=== PATIENT | male | born 1950 | race Caucasian/White ===

== ENCOUNTER 2016-08-23 11:48 | Inpatient (IN) | payer MEDICARE, MEDICAID ==
[~2016-08-23] VITALS: Ht 180.3 cm; Wt 79.8 kg
[2016-08-23] MEDS ORDERED: Norco 5mg/325mg tab ORAL PRN (22:45)
[2016-08-23] MEDS ORDERED: Morphine Sulfate 2mg/ml Inj IVP PRN (22:45)
[2016-08-24] VITALS: BP 142/81
[2016-08-24 04:00] VITALS: BP 133/82
[2016-08-24 08:00] VITALS: BP 124/81
[2016-08-24 08:04] LABS: BASOPHILS % (AUTO) 0.5 % (0.0-2.0); EOSINOPHILS % (AUTO) 1.2 % (0.0-3.0); LYMPHOCYTES % (AUTO) 8.7 % (20.0-45.0); MEAN CORPUSCULAR HEMOGLOBIN 24.6 PG (27.0-31.0); MEAN CORPUSCULAR HGB CONC 33.4 G/DL (32.0-36.0); MEAN CORPUSCULAR VOLUME 74 FL (80-99); MEAN PLATELET VOLUME 4.9 FL (6.5-10.1); MONOCYTES % (AUTO) 8.7 % (1.0-10.0); NEUTROPHILS % (AUTO) 80.8 % (45.0-75.0); PLATELET COUNT 590 K/UL (150-450); RED BLOOD COUNT 4.01 M/UL (4.70-6.10); RED CELL DISTRIBUTION WIDTH 20.3 % (11.6-14.8); WHITE BLOOD COUNT 13.8 K/UL (4.8-10.8)
[2016-08-24 08:11] LABS: ALANINE AMINOTRANSFERASE 12 U/L (3-41); ALBUMIN/GLOBULIN RATIO 0.8 (1.0-2.7); ANION GAP 15 (5-15); ASPARTATE AMINO TRANSFERASE 11 U/L (5-40); CALCIUM 8.7 mg/dL (8.6-10.2); CARBON DIOXIDE 24 mEQ/L (20-30); CHLORIDE 97 mEQ/L (98-107); CREATININE 0.8 mg/dL (0.7-1.2); GLOMERULAR FILTRATION RATE > 60 mL/min (>60); HEMOLYSIS 2; PHOSPHORUS 3.2 mg/dL (2.5-4.8); POTASSIUM 3.8 mEQ/L (3.4-4.9); SODIUM 136 mEQ/L (135-145); TOTAL PROTEIN 6.6 g/dL (6.6-8.7)
--- NOTE | 2016-08-24 08:33 | Diagnostic Imaging Report ---
Indication: Shortness of breath and vomiting Technique: Single portable AP view of the chest. Findings: Comparison: None. Osteophytes suggested in mid thoracic spine. The extra pulmonary soft tissues, cardiomediastinal silhouette, pulmonary vasculature and parenchyma, and pleural surfaces are unremarkable. IMPRESSION: Degenerative spondylosis Otherwise negative portable AP chest.
[2016-08-24] MEDS: Pantoprazole Inj IVP SCH ×2 (09:15→17:29)
--- NOTE | 2016-08-24 11:36 | GI Initial Consult Note ---
History of Present Illness General Date patient seen: Aug 24, 2016 Time patient seen: 10:00 Referring physician: ESTUARDO JOHNSON Reason for Consultation: GI BLEED Present Illness HPI 66 year old male patient direct admission from [facility] due to GI bleed. Last H&H @ [place] noted to be 6.9, s/p 2 units pRBCs currently at 8.6. ROS limited, patient request for rest due to fatigue. Pt seen on floor, awake A& Ox4 NAD with no active s/sx of bleeding. Patient says he is unaware of any active bleeds. Hx of asthma. Denies any history of any endoscopic procedures. Presents today with anemia, leukocytosis and hypoalbuminemia. Allergies: Coded Allergies: No Known Allergies (Unverified , 08/23/16) Per pt, he has no known allergies Patient History History Provided By: Patient, Medical Record Review of Systems All Other Systems: negative except mentioned in HPI Physical Exam Vital Signs Date Time Temp Pulse Resp B/P Pulse Ox O2 Delivery O2 Flow Rate FiO2 08/23/16 20:45 86 08/24/16 00:00 98.1 16 142/81 100 08/24/16 04:00 Room Air Sp02 EP Interpretation: reviewed Labs Laboratory Tests Test 08/24/16 07:25 White Blood Count 13.8 K/UL (4.8-10.8) H Red Blood Count 4.01 M/UL (4.70-6.10) L Hemoglobin 9.9 G/DL (14.2-18.0) L Hematocrit 29.5 % (42.0-52.0) L Mean Corpuscular Volume 74 FL (80-99) L Mean Corpuscular Hemoglobin 24.6 PG (27.0-31.0) L Mean Corpuscular Hemoglobin Concent 33.4 G/DL (32.0-36.0) Red Cell Distribution Width 20.3 % (11.6-14.8) H Platelet Count 590 K/UL (150-450) H Mean Platelet Volume 4.9 FL (6.5-10.1) L Neutrophils (%) (Auto) 80.8 % (45.0-75.0) H Lymphocytes (%) (Auto) 8.7 % (20.0-45.0) L Monocytes (%) (Auto) 8.7 % (1.0-10.0) Eosinophils (%) (Auto) 1.2 % (0.0-3.0) Basophils (%) (Auto) 0.5 % (0.0-2.0) Sodium Level 136 mEQ/L (135-145) Potassium Level 3.8 mEQ/L (3.4-4.9) Chloride Level 97 mEQ/L (98-107) L Carbon Dioxide Level 24 mEQ/L (20-30) Anion Gap 15 (5-15) Blood Urea Nitrogen 19 mg/dL (7-23) Creatinine 0.8 mg/dL (0.7-1.2) Estimat Glomerular Filtration Rate > 60 mL/min (>60) Glucose Level 107 mg/dL (74-106) H Calcium Level 8.7 mg/dL (8.6-10.2) Phosphorus Level 3.2 mg/dL (2.5-4.8) Magnesium Level 2.0 mg/dL (1.7-2.5) Total Bilirubin 0.4 mg/dL (0.0-1.2) Aspartate Amino Transf (AST/SGOT) 11 U/L (5-40) Alanine Aminotransferase (ALT/SGPT) 12 U/L (3-41) Alkaline Phosphatase 51 U/L (40-129) Total Protein 6.6 g/dL (6.6-8.7) Albumin 3.1 g/dL (3.5-5.2) L Globulin 3.5 g/dL Albumin/Globulin Ratio 0.8 (1.0-2.7) L General Appearance: well appearing, no apparent distress, alert Head: normocephalic EENT: PERRL/EOMI, normal ENT inspection Neck: supple Respiratory: normal breath sounds, no respiratory distress Cardiovascular: normal rate Gastrointestinal: normal inspection, non tender, soft Rectal: heme negative stool Musculoskeletal: normal inspection, back normal Neurologic: normal inspection, alert, oriented x3, responsive Psychiatric: normal inspection, judgement/insight normal, memory normal Skin: normal inspection, normal color, no rash, warm/dry Lymphatic: normal inspection, no adenopathy Current Medications Current Medications Medications (Trade) Dose Ordered Sig/Fabian Route PRN Reason Start Time Stop Time Status Last Admin Dose Admin Acetaminophen/ Hydrocodone Bitart ([place] 5/325) 1 tab Q6HR PRN ORAL For Pain 08/23/16 22:45 08/30/16 22:44 Morphine Sulfate (Morphine Sulfate) 2 mg Q4H PRN IVP Severe Pain (Pain Scale 7-10) 08/23/16 22:45 08/30/16 22:44 Ondansetron HCl (Zofran) 4 mg Q4HR PRN IVP Nausea & Vomiting 08/23/16 22:45 09/22/16 22:44 Pantoprazole (Protonix) 40 mg BID IVP 08/24/16 09:00 09/23/16 08:59 08/24/16 09:15 GI: Plan Problems: (1) Anemia (2) Leukocytosis (3) Hypoalbuminemia (4) GI bleed Plan patient for EGD/colonoscopy tomorrow for evaluation of GI bleed/anemia - maintain CLD, NPO @ [place]. - hold all blood thinners anemia work up OB stool r/o GI bleed monitor H&H, transfuse prn ppi fu labs Discussed with Dr. Bassett. Thank you for referring this patient, we will follow. Alejandra Iraheta N.P. Aug 24, 2016 11:36
[2016-08-24 12:00] VITALS: BP 124/70
--- NOTE | 2016-08-24 13:02 | Consultation ---
History of Present Illness General Date patient seen: Aug 24, 2016 Referring physician: ESTUARDO JOHNSON Reason for Consultation: inpatinet management Present Illness HPI 66 year old male with pmhx of Asthma, was taken to [facility] due to GI bleed. Last H&H @ [place] noted to be 6.9, s/p 2 units PRBC. Pt claims that his girl friend took him to [place] and doesn't remember why. Patient says he is unaware of any active bleeds. Currently c/o of constipation and weakness. Allergies: Coded Allergies: No Known Allergies (Unverified , 08/23/16) Per pt, he has no known allergies Patient History Healthcare decision maker N Resuscitation status Full Code Advanced Directive on File Past Medical/Surgical History Past Medical/Surgical History: (1) History of asthma (2) Homeless Review of Systems All Other Systems: negative except mentioned in HPI Physical Exam General Appearance: WD/WN, alert Lines, tubes and drains: peripheral, central line HEENT: normocephalic, atraumatic Neck: non-tender, normal alignment Respiratory/Chest: chest wall non-tender, normal breath sounds Breasts: no masses Cardiovascular/Chest: normal peripheral pulses Abdomen: normal bowel sounds, non tender Genitourinary/Rectal: normal genital exam, normal rectal exam Extremities: normal range of motion, non-tender Skin Exam: normal pigmentation Last 24 Hour Vital Signs Date Time Temp Pulse Resp B/P Pulse Ox O2 Delivery O2 Flow Rate FiO2 08/24/16 12:00 97.7 96 19 124/70 99 Room Air 08/24/16 08:00 97.7 88 19 124/81 97 Room Air 08/24/16 07:55 90 08/24/16 04:00 97.7 86 20 133/82 99 Room Air 08/24/16 04:00 85 08/24/16 00:00 98.1 90 16 142/81 100 08/24/16 00:00 93 08/23/16 20:45 86 Intake and Output 08/23/16 08/24/16 19:00 07:00 Intake Total 240 ml Output Total 500 ml Balance -260 ml Intake Oral 240 ml Output Urine Total 500 ml Laboratory Tests Test 08/24/16 07:25 White Blood Count 13.8 K/UL (4.8-10.8) H Red Blood Count 4.01 M/UL (4.70-6.10) L Hemoglobin 9.9 G/DL (14.2-18.0) L Hematocrit 29.5 % (42.0-52.0) L Mean Corpuscular Volume 74 FL (80-99) L Mean Corpuscular Hemoglobin 24.6 PG (27.0-31.0) L Mean Corpuscular Hemoglobin Concent 33.4 G/DL (32.0-36.0) Red Cell Distribution Width 20.3 % (11.6-14.8) H Platelet Count 590 K/UL (150-450) H Mean Platelet Volume 4.9 FL (6.5-10.1) L Neutrophils (%) (Auto) 80.8 % (45.0-75.0) H Lymphocytes (%) (Auto) 8.7 % (20.0-45.0) L Monocytes (%) (Auto) 8.7 % (1.0-10.0) Eosinophils (%) (Auto) 1.2 % (0.0-3.0) Basophils (%) (Auto) 0.5 % (0.0-2.0) Sodium Level 136 mEQ/L (135-145) Potassium Level 3.8 mEQ/L (3.4-4.9) Chloride Level 97 mEQ/L (98-107) L Carbon Dioxide Level 24 mEQ/L (20-30) Anion Gap 15 (5-15) Blood Urea Nitrogen 19 mg/dL (7-23) Creatinine 0.8 mg/dL (0.7-1.2) Estimat Glomerular Filtration Rate > 60 mL/min (>60) Glucose Level 107 mg/dL (74-106) H Calcium Level 8.7 mg/dL (8.6-10.2) Phosphorus Level 3.2 mg/dL (2.5-4.8) Magnesium Level 2.0 mg/dL (1.7-2.5) Total Bilirubin 0.4 mg/dL (0.0-1.2) Aspartate Amino Transf (AST/SGOT) 11 U/L (5-40) Alanine Aminotransferase (ALT/SGPT) 12 U/L (3-41) Alkaline Phosphatase 51 U/L (40-129) Total Protein 6.6 g/dL (6.6-8.7) Albumin 3.1 g/dL (3.5-5.2) L Globulin 3.5 g/dL Albumin/Globulin Ratio 0.8 (1.0-2.7) L Height (Feet): 5 Height (Inches): 11.00 Weight (Pounds): 176 Medications Current Medications Medications (Trade) Dose Ordered Sig/Fabian Route PRN Reason Start Time Stop Time Status Last Admin Dose Admin Acetaminophen/ Hydrocodone Bitart ([place] 5/325) 1 tab Q6HR PRN ORAL For Pain 08/23/16 22:45 08/30/16 22:44 Morphine Sulfate (Morphine Sulfate) 2 mg Q4H PRN IVP Severe Pain (Pain Scale 7-10) 08/23/16 22:45 08/30/16 22:44 Ondansetron HCl (Zofran) 4 mg Q4HR PRN IVP Nausea & Vomiting 08/23/16 22:45 09/22/16 22:44 Pantoprazole (Protonix) 40 mg BID IVP 08/24/16 09:00 09/23/16 08:59 08/24/16 09:15 Assessment/Plan Problem List: (1) Anemia ICD Codes: D64.9 - Anemia, unspecified SNOMED: 358145295 (2) Leukocytosis ICD Codes: D72.829 - Elevated white blood cell count, unspecified SNOMED: 222169712, 056087158 (3) Hypoalbuminemia ICD Codes: E88.09 - Other disorders of plasma-protein metabolism, not elsewhere classified SNOMED: 349340889 (4) History of asthma ICD Codes: Z87.09 - Personal history of other diseases of the respiratory system SNOMED: 761989597 (5) GI bleed ICD Codes: K92.2 - Gastrointestinal hemorrhage, unspecified SNOMED: 96554988 (6) Homeless ICD Codes: Z59.0 - Homelessness SNOMED: 81925534 Assessment/Plan check h/h prbc prn GI evaluation psych evaluation QUINTON FREEDMAN Aug 24, 2016 13:02
[2016-08-24 16:00] VITALS: BP 124/78
[2016-08-24] MEDS ORDERED: Bisacodyl EC 5mg tab ORAL ONE (16:00)
[2016-08-24] MEDS ORDERED: Nulytely 4L ORAL ONE (16:00)
--- NOTE | 2016-08-24 18:56 | History & Physical ---
History and Physical History & Physicial Dictated for Int Med - Dr Gregory no. [id number]. WILLIS DIANE Aug 24, 2016 18:56
[2016-08-24 19:33] VITALS: BP 131/80
[2016-08-24] MEDS: NS w/KCl 20mEq 1,000 ML IV SCH (20:00)
--- NOTE | 2016-08-24 21:00 | Consultation ---
DATE OF CONSULTATION: HISTORY OF PRESENT ILLNESS: This is a 66-year-old male with a history of asthma, who has been admitted to the hospital due to GI bleeding. The patient initially was taken to the [facility]. Apparently, the patient does not have any recollection of going to the hospital reason. During the evaluation, he is presenting with impairment in cognition, having impairment of memory, not able to provide a thorough history. The patient is currently homeless. It appears that the patient has poor compliance with medication and care. No anxiety or agitation. No depressive psychotic symptoms. PAST PSYCHIATRIC HISTORY: He denies any psychiatric history. PAST MEDICAL HISTORY: Significant for asthma. ALLERGIES: No known drug allergies. SUBSTANCE ABUSE HISTORY: No known history of illicit drug use or alcohol. The patient is denying. MENTAL STATUS EXAMINATION: Alert and oriented times self and place. He appeared to be somewhat confused. Mood is neutral. Affect is constricted. Congruent mood. Thought process is concrete. Thought content, no suicidal or homicidal ideation. Cognition is impaired. ASSESSMENT: AXIS I Cognitive impairment rule out psychotic disorder. AXIS II Deferred. AXIS III Gastrointestinal bleed. AXIS IV Moderate. AXIS V Global assessment of functioning is 20. PLAN: 1. The patient will have a social service consult. 2. We will continue to reassess. Pauly Mcdonnell M.D. DR: Jay JOB#: [id number] CC:
--- NOTE | 2016-08-24 21:30 | History and Physical Report ---
DATE OF ADMISSION: 08/23/2016 CHIEF COMPLAINT: The patient is a 66-year-old white male, who presents with chief complaint of vomiting blood. HISTORY OF PRESENT ILLNESS: Began yesterday on 08/23/2016. The patient states he began to experience extreme weakness. The patient was fainting. The patient then began to vomit a he darker colored vomit. The patient thinks it might have been blood. The patient presented initially to [facility]. The patient was found to have hemoglobin and hematocrit of 8.0 and 26.5. The patient was actively vomiting blood. The patient was transfused two units of packed RBCs. The patient was stable for transfer to [facility]. The patient was transferred to [facility] for insurance purposes. The patient is admitted with gastrointestinal bleeding and hematemesis. PAST MEDICAL HISTORY: The patient denies. PAST SURGICAL HISTORY: The patient denies. CURRENT MEDICATIONS: The patient denies. ALLERGIES: No known drug allergies. SOCIAL HISTORY: The patient is . The patient lives in a transitional housing for former convicts. The patient denies tobacco or alcohol use. REVIEW OF SYSTEMS: Constitutional: The patient denies weight loss or weight gain. The patient denies fevers or chills. HEENT: The patient denies ear or throat pain. The patient denies headache. Cardiovascular: The patient denies palpitations or chest pain. Chest: The patient denies wheezing or shortness of breath. Abdominal: The patient complains of dark red blood emesis as above. The patient denies constipation or diarrhea. The patient complains of nausea and vomiting. Neuromuscular: The patient denies seizure or generalized weakness. Genitourinary: The patient denies dysuria or increased frequency of urination. PHYSICAL EXAMINATION: VITAL SIGNS: Temperature 97.7 degrees, respirations 19, pulse 88, and blood pressure 124/81. GENERAL: The patient is a well-developed and well-nourished, thin-appearing white male, in no apparent distress. HEENT: Eyes, pupils are equal and responsive to light and accommodation. Extraocular movements are intact. NECK: Supple without lymphadenopathy. CHEST: Lungs are clear to auscultation bilaterally without wheezes or rales. CARDIOVASCULAR: Regular rhythm and rate. S1 and S2 are normal without murmurs, rubs, or gallops. ABDOMEN: Soft, nontender and nondistended. Positive bowel sounds. No evidence of hepatosplenomegaly. Currently, no rebound or guarding noted. EXTREMITIES: Negative for clubbing, cyanosis, or edema. RECTAL/GENITAL: Refused. NEUROLOGIC: Cranial nerves II through XII are grossly intact without focal deficits. Motor strength is 5/5 bilaterally. Deep tendon reflexes are 2+ plantar. LABORATORY STUDIES: From [facility] WBC 17.5, hemoglobin 8.0, hematocrit 26.5, and platelets 743,000. Sodium 131, potassium 3.8, chloride 97, CO2 24, BUN 27, and creatinine 0.99. Glucose is 123. Lipase is 16. ALT 18, AST 16, and total bilirubin was 0.2. ASSESSMENT: This is a 66-year-old white male. 1. Hematemesis. 2. Gastrointestinal hemorrhage. 3. Anemia of blood loss. 4. History of methamphetamine use. TREATMENT: 1. Hematemesis/gastrointestinal hemorrhage. A Gastroenterology consultation was obtained with Dr. Isreal Bassett. The patient will require endoscopy and colonoscopy. This has been scheduled for 08/25/2016. 2. Anemia, blood loss. The patient received two units of packed RBCs at [facility]. The patient has been typed and crossed for two units of packed RBCs. We will hold PRBC for hemoglobin less than 8 or hematocrit less than 23. 3. History of methamphetamine use. Mohamud Myers M.D. DR: LISA JOB#: [id number] CC:
[2016-08-24] MEDS ORDERED: Fleet's Enema 133ml RECTAL ONE (23:00)
[2016-08-25] VITALS: BP 149/82
[2016-08-25 03:51] VITALS: BP 129/69
--- NOTE | 2016-08-25 07:42 | Anethesia Preoperative Eval ---
Anesthesia Pre-op PMH/ROS General Date of Evaluation: Aug 25, 2016 Anesthesiologist: shayna Mallampati Score Class I : Soft palate, uvula, fauces, pillars visible Class II: Soft palate, uvula, fauces visible Class III: Soft palate, base of uvula visible Class IV: Only hard plate visible Surgeon: minoo Diagnosis: GI Bleed Surgical Procedure: egd/colonoscopy Social History: drug use - history of amphetamine use Family History: no anesthesia problems Allergies: Coded Allergies: No Known Allergies (Unverified , 08/23/16) Per pt, he has no known allergies Medications: see eMAR Past Medical History Pulmonary: Reports: asthma Neurologic/Psychiatric: Reports: other - history of amphetamine use, homeless Hematology/Immune: Reports: anemia Anesthesia Pre-op Phys. Exam Physician Exam Last Vital Signs Date Time Temp Pulse Resp B/P Pulse Ox O2 Delivery O2 Flow Rate FiO2 08/25/16 04:00 81 08/25/16 03:51 97.2 18 129/69 97 Room Air Constitutional: NAD Neurologic: CN 2-12 intact Cardiovascular: RRR Respiratory: CTA Gastrointestinal: S/NT/ND Anesthesia Pre-op A/P Labs Labs Test 08/24/16 07:25 08/24/16 21:40 White Blood Count 13.8 K/UL (4.8-10.8) Red Blood Count 4.01 M/UL (4.70-6.10) Hemoglobin 9.9 G/DL (14.2-18.0) Hematocrit 29.5 % (42.0-52.0) Mean Corpuscular Volume 74 FL (80-99) Mean Corpuscular Hemoglobin 24.6 PG (27.0-31.0) Mean Corpuscular Hemoglobin Concent 33.4 G/DL (32.0-36.0) Red Cell Distribution Width 20.3 % (11.6-14.8) Platelet Count 590 K/UL (150-450) Mean Platelet Volume 4.9 FL (6.5-10.1) Neutrophils (%) (Auto) 80.8 % (45.0-75.0) Lymphocytes (%) (Auto) 8.7 % (20.0-45.0) Monocytes (%) (Auto) 8.7 % (1.0-10.0) Eosinophils (%) (Auto) 1.2 % (0.0-3.0) Basophils (%) (Auto) 0.5 % (0.0-2.0) Sodium Level 136 mEQ/L (135-145) Potassium Level 3.8 mEQ/L (3.4-4.9) Chloride Level 97 mEQ/L (98-107) Carbon Dioxide Level 24 mEQ/L (20-30) Anion Gap 15 (5-15) Blood Urea Nitrogen 19 mg/dL (7-23) Creatinine 0.8 mg/dL (0.7-1.2) Estimat Glomerular Filtration Rate > 60 mL/min (>60) Glucose Level 107 mg/dL (74-106) Calcium Level 8.7 mg/dL (8.6-10.2) Phosphorus Level 3.2 mg/dL (2.5-4.8) Magnesium Level 2.0 mg/dL (1.7-2.5) Total Bilirubin 0.4 mg/dL (0.0-1.2) Aspartate Amino Transf (AST/SGOT) 11 U/L (5-40) Alanine Aminotransferase (ALT/SGPT) 12 U/L (3-41) Alkaline Phosphatase 51 U/L (40-129) Total Protein 6.6 g/dL (6.6-8.7) Albumin 3.1 g/dL (3.5-5.2) Globulin 3.5 g/dL Albumin/Globulin Ratio 0.8 (1.0-2.7) Urine Opiates Screen Negative (NEGATIVE) Urine Barbiturates Screen Negative (NEGATIVE) Phencyclidine (PCP) Screen Negative (NEGATIVE) Urine Amphetamines Screen Positive (NEGATIVE) Urine Benzodiazepines Screen Negative (NEGATIVE) Urine Cocaine Screen Negative (NEGATIVE) Urine Marijuana (THC) Screen Negative (NEGATIVE) Risk Assessment & Plan Assessment: gi bleed Plan: egd Status Change Before Surgery: No Pre-Antibiotics Drug: JENNIFER Mortensen Aug 25, 2016 07:42
[2016-08-25 08:00] VITALS: BP 138/83
[2016-08-25] MEDS: Pantoprazole Inj IVP SCH ×2 (08:07→17:39)
[2016-08-25] MEDS ORDERED: Thiamine 100mg tab ORAL SCH (09:00)
--- NOTE | 2016-08-25 09:14 | Diagnostic Imaging Report ---
Indications: Dyspnea Technique: Portable AP chest Findings: Comparison: 08/24/16 Cardiac silhouette remains normal in size. Pulmonary vasculature remains within normal limits. Lungs and pleura remain clear. Mild elongation of the aortic arch, thoracic vertebral osteophytes again noted. IMPRESSION: No evidence of acute disease, unchanged Stable chronic changes as described
[2016-08-25] MEDS: NS w/KCl 20mEq 1,000 ML IV SCH (09:20)
--- NOTE | 2016-08-25 10:01 | GI Progress Note ---
Assessment/Plan Problems: (1) GI bleed ICD Codes: K92.2 - Gastrointestinal hemorrhage, unspecified SNOMED: 42440031 (2) Hypoalbuminemia ICD Codes: E88.09 - Other disorders of plasma-protein metabolism, not elsewhere classified SNOMED: 765119475 (3) Leukocytosis ICD Codes: D72.829 - Elevated white blood cell count, unspecified SNOMED: 399861137, 459995018 (4) Anemia ICD Codes: D64.9 - Anemia, unspecified SNOMED: 701051863 (5) History of asthma ICD Codes: Z87.09 - Personal history of other diseases of the respiratory system SNOMED: 444516738 Status: unchanged Status Narrative Discussed with Dr. Bassett. Assessment/Plan utox positive for amphetamines patient REFUSED EGD/colonoscopy refused morning lab draws CLD, adv as tolerated monitor H&H, transfuse prn OB stool r/o GI bleed ppi fu labs Subjective Subjective refusing lab draws refusing procedures Objective Last 24 Hour Vital Signs Date Time Temp Pulse Resp B/P Pulse Ox O2 Delivery O2 Flow Rate FiO2 08/25/16 08:00 97.5 95 18 138/83 98 Room Air 08/25/16 08:00 88 08/25/16 04:00 81 08/25/16 03:51 97.2 70 18 129/69 97 Room Air 08/25/16 00:00 97.2 91 18 149/82 100 Room Air 08/25/16 00:00 82 08/24/16 20:00 82 08/24/16 19:33 97.0 91 18 131/80 99 Room Air 08/24/16 16:00 98.1 80 18 124/78 98 Room Air 08/24/16 15:07 82 08/24/16 12:02 89 08/24/16 12:00 97.7 96 19 124/70 99 Room Air Intake and Output 08/24/16 08/25/16 19:00 07:00 Output Total 600 ml Balance -600 ml Output Urine Total 600 ml Laboratory Tests Test 08/24/16 21:40 Urine Opiates Screen Negative (NEGATIVE) Urine Barbiturates Screen Negative (NEGATIVE) Phencyclidine (PCP) Screen Negative (NEGATIVE) Urine Amphetamines Screen Positive (NEGATIVE) H Urine Benzodiazepines Screen Negative (NEGATIVE) Urine Cocaine Screen Negative (NEGATIVE) Urine Marijuana (THC) Screen Negative (NEGATIVE) Height (Feet): 5 Height (Inches): 11.00 Weight (Pounds): 176 General Appearance: no apparent distress, alert Cardiovascular: normal rate Respiratory/Chest: normal breath sounds, no respiratory distress Abdominal Exam: normal bowel sounds, non tender, soft Extremities: normal range of motion Alejandra Iraheta N.P. Aug 25, 2016 10:01
[2016-08-25 11:35] VITALS: BP 122/65
--- NOTE | 2016-08-25 11:35 | Pulmonology Progress Note ---
Assessment/Plan Assessment/Plan ASSESSMENT upper GI bleeding/hemorrhage anemia s/p blood transfusion leukocytosis low albumin cognitive impairment possible psychotic disorder hx of amphetamine abuse homelessness amphetamine abuse nonocclusive DVR soleal vein PLAN OF CARE tele GI follows was scheduled for EGD and colon today, declined start regular diet, monitor tolerance PPI stool OB no further episodes of bleeding labs today , earlier refused anemia w/up ordered( declined labs) O2 HHN prn sat stable on RA CXR negative if stable HH and tolerates diet will dc later SS eval for placement urine tox+ 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 transfer to [facility] floor dc plan addendum: still leukocytosis,afebrile CXR negative HH stable, at baseline can be dc if tolerates diet case discussed and evaluated by supervising physician Subjective Allergies: Coded Allergies: No Known Allergies (Unverified , 08/23/16) Per pt, he has no known allergies Subjective declined EGD and colon today no further episodes of bleeding no labs this am Objective Last 24 Hour Vital Signs Date Time Temp Pulse Resp B/P Pulse Ox O2 Delivery O2 Flow Rate FiO2 08/25/16 08:00 97.5 95 18 138/83 98 Room Air 08/25/16 08:00 88 08/25/16 04:00 81 08/25/16 03:51 97.2 70 18 129/69 97 Room Air 08/25/16 00:00 97.2 91 18 149/82 100 Room Air 08/25/16 00:00 82 08/24/16 20:00 82 08/24/16 19:33 97.0 91 18 131/80 99 Room Air 08/24/16 16:00 98.1 80 18 124/78 98 Room Air 08/24/16 15:07 82 08/24/16 12:02 89 08/24/16 12:00 97.7 96 19 124/70 99 Room Air Intake and Output 08/24/16 08/25/16 19:00 07:00 Output Total 600 ml Balance -600 ml Output Urine Total 600 ml General Appearance: WD/WN, no acute distress HEENT: normocephalic, atraumatic, anicteric, mucous membranes moist Respiratory/Chest: lungs clear, no respiratory distress, no accessory muscle use Cardiovascular: normal peripheral pulses, normal rate - SR on tele , regular rhythm, no JVD Abdomen: normal bowel sounds, soft, non tender Genitourinary: normal external genitalia Extremities: no edema, pedal pulses normal Neurologic/Psychiatric: no motor/sensory deficits, alert, oriented x 3, responsive Musculoskeletal: normal muscle bulk Laboratory Tests 08/24/16 21:40: Urine Opiates Screen Negative, Urine Barbiturates Screen Negative, Phencyclidine (PCP) Screen Negative, Urine Amphetamines Screen PositiveH, Urine Benzodiazepines Screen Negative, Urine Cocaine Screen Negative, Urine Marijuana (THC) Screen Negative Current Medications Medications (Trade) Dose Ordered Sig/Fabian Route PRN Reason Start Time Stop Time Status Last Admin Dose Admin Acetaminophen/ Hydrocodone Bitart ([place] 5/325) 1 tab Q6HR PRN ORAL For Pain 08/23/16 22:45 08/30/16 22:44 Fluoxetine HCl (PROzac) 20 mg DAILY ORAL 08/25/16 09:00 09/24/16 08:59 08/25/16 08:07 Folic Acid (Folate) 1 mg DAILY ORAL 08/25/16 09:00 09/24/16 08:59 08/25/16 08:07 Morphine Sulfate (Morphine Sulfate) 2 mg Q4H PRN IVP Severe Pain (Pain Scale 7-10) 08/23/16 22:45 08/30/16 22:44 Multivitamins 1 tab 1 tab DAILY ORAL 08/25/16 09:00 09/24/16 08:59 08/25/16 08:07 Ondansetron HCl (Zofran) 4 mg Q4HR PRN IVP Nausea & Vomiting 08/23/16 22:45 09/22/16 22:44 Pantoprazole (Protonix) 40 mg BID IVP 08/24/16 09:00 09/23/16 08:59 08/25/16 08:07 Sodium Chloride (NS w/KCl 20mEq) 1,000 ml @ 75 mls/hr [id number] IV 08/24/16 20:00 09/23/16 19:59 Thiamine HCl (Vitamin B1) 100 mg DAILY ORAL 08/25/16 09:00 09/24/16 08:59 08/25/16 08:06 Deonna Craft NP ([place]) Aug 25, 2016 11:35
[2016-08-25 11:46] LABS: BASOPHILS % (AUTO) 0.4 % (0.0-2.0); EOSINOPHILS % (AUTO) 0.4 % (0.0-3.0); LYMPHOCYTES % (AUTO) 6.3 % (20.0-45.0); MEAN CORPUSCULAR HGB CONC 31.4 G/DL (32.0-36.0); MEAN CORPUSCULAR VOLUME 76 FL (80-99); MEAN PLATELET VOLUME 5.1 FL (6.5-10.1); MONOCYTES % (AUTO) 8.5 % (1.0-10.0); NEUTROPHILS % (AUTO) 84.4 % (45.0-75.0); PLATELET COUNT 542 K/UL (150-450); RED BLOOD COUNT 3.96 M/UL (4.70-6.10); RED CELL DISTRIBUTION WIDTH 20.5 % (11.6-14.8); WHITE BLOOD COUNT 16.2 K/UL (4.8-10.8)
[2016-08-25 11:57] LABS: ALANINE AMINOTRANSFERASE 11 U/L (3-41); ALBUMIN/GLOBULIN RATIO 0.9 (1.0-2.7); ANION GAP 16 (5-15); ASPARTATE AMINO TRANSFERASE 10 U/L (5-40); CALCIUM 8.8 mg/dL (8.6-10.2); CARBON DIOXIDE 25 mEQ/L (20-30); CHLORIDE 94 mEQ/L (98-107); CREATININE 0.9 mg/dL (0.7-1.2); GLOMERULAR FILTRATION RATE > 60 mL/min (>60); HEMOLYSIS 0; MAGNESIUM 2.1 mg/dL (1.7-2.5); PHOSPHORUS 3.3 mg/dL (2.5-4.8); POTASSIUM 3.5 mEQ/L (3.4-4.9); SODIUM 135 mEQ/L (135-145); TOTAL PROTEIN 6.7 g/dL (6.6-8.7)
[2016-08-25 11:58] LABS: PROTHROMBIN TIME 10.5 SEC (9.30-11.50)
[2016-08-25 13:03] LABS: ERYTHROCYTE SEDIMENTATION RATE 59 MM/HR (0-20)
[2016-08-25 16:00] VITALS: BP 130/76
--- NOTE | 2016-08-25 16:17 | Internal Med Progress Note ---
Subjective Date of Service: Aug 25, 2016 Physician Name Mohamud Diane Attending Physician Bishnu Gregory MD Current Medications Medications (Trade) Dose Ordered Sig/Fabian Route PRN Reason Start Time Stop Time Status Last Admin Dose Admin Acetaminophen/ Hydrocodone Bitart ([place] 5/325) 1 tab Q6HR PRN ORAL For Pain 08/23/16 22:45 08/30/16 22:44 Fluoxetine HCl (PROzac) 20 mg DAILY ORAL 08/25/16 09:00 09/24/16 08:59 08/25/16 08:07 Folic Acid (Folate) 1 mg DAILY ORAL 08/25/16 09:00 09/24/16 08:59 08/25/16 08:07 Morphine Sulfate (Morphine Sulfate) 2 mg Q4H PRN IVP Severe Pain (Pain Scale 7-10) 08/23/16 22:45 08/30/16 22:44 Multivitamins 1 tab 1 tab DAILY ORAL 08/25/16 09:00 09/24/16 08:59 08/25/16 08:07 Ondansetron HCl (Zofran) 4 mg Q4HR PRN IVP Nausea & Vomiting 08/23/16 22:45 09/22/16 22:44 Pantoprazole (Protonix) 40 mg BID IVP 08/24/16 09:00 09/23/16 08:59 08/25/16 08:07 Sodium Chloride (NS w/KCl 20mEq) 1,000 ml @ 75 mls/hr [id number] IV 08/24/16 20:00 09/23/16 19:59 Thiamine HCl (Vitamin B1) 100 mg DAILY ORAL 08/25/16 09:00 09/24/16 08:59 08/25/16 08:06 Allergies: Coded Allergies: No Known Allergies (Unverified , 08/23/16) Per pt, he has no known allergies ROS Limited/Unobtainable: No Constitutional: Reports: no symptoms HEENT: Reports: no symptoms Cardiovascular: Reports: no symptoms Respiratory: Reports: no symptoms Gastrointestinal/Abdominal: Reports: other - hematemesis, vomiting Genitourinary: Reports: no symptoms Neurologic/Psychiatric: Reports: no symptoms Subjective 66 YO M admitted with hematemesis. Refused endoscopy/colonoscopy today. Cover for Int Med-Dr Gregory. Objective Last Vital Signs Date Time Temp Pulse Resp B/P Pulse Ox O2 Delivery O2 Flow Rate FiO2 08/25/16 12:00 78 08/25/16 11:35 97.3 18 122/65 100 Room Air General Appearance: WD/WN, no apparent distress EENT: PERRL/EOMI, normal ENT inspection Neck: non-tender, normal alignment, supple, normal inspection Cardiovascular: normal peripheral pulses, normal rate, regular rhythm, no gallop/murmur, no JVD Respiratory/Chest: chest wall non-tender, lungs clear, normal breath sounds, no respiratory distress, no accessory muscle use Abdomen: normal bowel sounds, non tender, soft, no organomegaly, no mass Extremities: normal range of motion 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, no motor/sensory deficits Skin: normal pigmentation, warm/dry Laboratory Tests Test 08/24/16 21:40 08/25/16 11:00 08/25/16 11:15 Urine Opiates Screen Negative (NEGATIVE) Urine Barbiturates Screen Negative (NEGATIVE) Phencyclidine (PCP) Screen Negative (NEGATIVE) Urine Amphetamines Screen Positive (NEGATIVE) H Urine Benzodiazepines Screen Negative (NEGATIVE) Urine Cocaine Screen Negative (NEGATIVE) Urine Marijuana (THC) Screen Negative (NEGATIVE) White Blood Count 16.2 K/UL (4.8-10.8) H Red Blood Count 3.96 M/UL (4.70-6.10) L Hemoglobin 9.5 G/DL (14.2-18.0) L Hematocrit 30.2 % (42.0-52.0) L Mean Corpuscular Volume 76 FL (80-99) L Mean Corpuscular Hemoglobin 24.0 PG (27.0-31.0) L Mean Corpuscular Hemoglobin Concent 31.4 G/DL (32.0-36.0) L Red Cell Distribution Width 20.5 % (11.6-14.8) H Platelet Count 542 K/UL (150-450) H Mean Platelet Volume 5.1 FL (6.5-10.1) L Neutrophils (%) (Auto) 84.4 % (45.0-75.0) H Lymphocytes (%) (Auto) 6.3 % (20.0-45.0) L Monocytes (%) (Auto) 8.5 % (1.0-10.0) Eosinophils (%) (Auto) 0.4 % (0.0-3.0) Basophils (%) (Auto) 0.4 % (0.0-2.0) Erythrocyte Sedimentation Rate 59 MM/HR (0-20) H Prothrombin Time 10.5 SEC (9.30-11.50) Prothromb Time International Ratio 1.0 (0.9-1.1) Activated Partial Thromboplast Time 27 SEC (23-33) Sodium Level 135 mEQ/L (135-145) Potassium Level 3.5 mEQ/L (3.4-4.9) Chloride Level 94 mEQ/L (98-107) L Carbon Dioxide Level 25 mEQ/L (20-30) Anion Gap 16 (5-15) H Blood Urea Nitrogen 18 mg/dL (7-23) Creatinine 0.9 mg/dL (0.7-1.2) Estimat Glomerular Filtration Rate > 60 mL/min (>60) Glucose Level 120 mg/dL (74-106) H Calcium Level 8.8 mg/dL (8.6-10.2) Phosphorus Level 3.3 mg/dL (2.5-4.8) Magnesium Level 2.1 mg/dL (1.7-2.5) Total Bilirubin 0.3 mg/dL (0.0-1.2) Aspartate Amino Transf (AST/SGOT) 10 U/L (5-40) Alanine Aminotransferase (ALT/SGPT) 11 U/L (3-41) Alkaline Phosphatase 51 U/L (40-129) C-Reactive Protein, Quantitative 3.0 mg/dL (< 0.5) H Total Protein 6.7 g/dL (6.6-8.7) Albumin 3.2 g/dL (3.5-5.2) L Globulin 3.5 g/dL Albumin/Globulin Ratio 0.9 (1.0-2.7) L Carcinoembryonic Antigen 1.7 ng/mL Stool Occult Blood Pending Intake and Output 08/24/16 08/25/16 19:00 07:00 Output Total 600 ml Balance -600 ml Output Urine Total 600 ml Assessment/Plan Problem List: (1) Hematemesis (2) Gastrointestinal hemorrhage (3) Anemia, blood loss Assessment & Plan: S/P transfusion 2 units PRBC (4) Methamphetamine abuse (5) Noncompliance by refusing intervention or support Assessment & Plan: see psych note. (6) GI bleed Assessment & Plan: Refused colonoscopy/endoscopy. See GI note. Status: not improved MOHAMUD DIANE Aug 25, 2016 16:17
--- NOTE | 2016-08-28 10:17 | Discharge Summary ---
Discharge Summary Hospital Course Date of Admission Aug 23, 2016 at 20:36 Date of Discharge Aug 25, 2016 at 18:35 Admitting Diagnosis HPI Carlos Vieira is a 66 year old male who was admitted on Aug 23, 2016 at 20:36 for Gastrointestinal Bleed Hospital Course dc summary #[id number] Discharge Medications Medication Profile: No Active Prescriptions or Reported Meds Discharge Condition Upon Discharge: stable Discharge Disposition Patient was discharged to Home () Discharge Diagnoses: Venancio ([facility]),Deonna AVILA Aug 28, 2016 10:16
--- NOTE | 2016-08-28 22:42 | Diagnostic Imaging Report ---
APPROVED REPORT CPT Code: 88019 Present Symptoms Comments: Pain RIGHT LEG: Venous imaging reveals a patent deep venous system. There is no evidence of thrombus within the femoral, popliteal or tibial segments. The greater saphenous vein is also within normal limits. Doppler indicates normal spontaneous flow within these segments. LEFT LEG: Venous imaging reveals an acute, isolated soleal calf vein thrombosis. The tip of the thrombus was visualized at mid-calf level. The remainder of the deep venous system is patent. There is no evidence of thrombus within the common, superficial femoral, popliteal or tibial (posterior, and peroneal veins) segments. The greater saphenous vein is also within normal limits. Doppler indicates spontaneous and phasic flow within these segments. KHADAR Schulz was notified of abnormal results at 0940 hours.
--- NOTE | 2016-08-29 01:30 | Discharge Summary 2 SIG ---
DATE OF ADMISSION: 08/23/2016 DATE OF DISCHARGE: 08/25/2016 REASON FOR ADMISSION: 66 years old male, with history of asthma, homeless, was initially taken to [facility] by his girlfriend due to the GI bleeding. Hemoglobin at [facility] was 6.9. The patient undergone 2 units of packed red blood cell transfusion and subsequently was transferred to [facility] for further management. The patient did not recall why his girlfriend took him to [facility]. According to the notes, the patient had hematemesis. The patient by himself was unaware of any active bleeding. In the emergency department, the patient was afebrile. No leukocytosis. The patient was admitted for further management. ADMITTING DIAGNOSES: 1. Upper gastrointestinal bleeding/hemorrhage. 2. Anemia. 3. Status post blood transfusion. 4. Homelessness. 5. History of asthma HOSPITAL COURSE: The patient was admitted. GI consult was requested. The patient was closely monitored for any bleeding. Initially was NPO, on the IV fluids. Pain management was provided. GI prophylaxis was provided. GI scheduled the patient for EGD and colonoscopy on 08/25/2016, which the patient subsequently declined to do. The patient stated that he does not need it, despite explanation by GI specialist about the need and benefits of doing this procedure. The patient also initially declined laboratory workup, but then agreed to it. Hemoglobin and hematocrit remained stable. Upon transfer from [facility] to [place], hemoglobin - 9.9 and hematocrit -29.5. The next day respectively, hemoglobin -9.5 and hematocrit -20.2. Stool OB was positive, CEA was within normal limits. Low albumin. After refusal of procedure, the patient was started on diet. Patient was able to tolerate. No further episodes of bleeding. Urine tox screen was positive for amphetamines. The patient was counseled on abstinence from the street drugs. Social service was working with the patient and arranged transfer to transitional housing. Supplemental oxygen and pulmonary toilet were provided as needed. Chest x-ray was negative for any acute cardiopulmonary pathology. Pulse oximetry was stable on room air. Venous Duplex of bilateral lower extremities revealed acute nonocclusive thrombus in soleal vein left lower extremity. The remainder of deep venous system was patent. No evidence of DVT in superficial femoral, common femoral, popliteal or tibial veins. No anticoagulation was prescribed. Psychiatrist seen and evaluated the patient. Psychiatrist concluded that patient has cognitive impairment, possible psychiatric disorder. Recommended follow up as outpatient with psychiatrist. The patient was stable for discharge. DISCHARGE DIAGNOSIS: 1. Upper gastrointestinal bleeding/hemorrhage. 2. Anemia. 3. Status post blood transfusion. 4. Homelessness. 5. Amphetamine abuse. 6. Nonocclusive DVT soleal vein 7. History of asthma. 8. Cognitive impairment 9. Possible psychiatric disorder 10. Hypoalbuminemia. DISCHARGE MEDICATIONS: See medication reconciliation list. DISCHARGE INSTRUCTIONS: The patient to follow up with primary medical provider. The patient was advised to return to emergency department should he develop any recurrent symptoms of upper or lower GI bleeding (blood in vomitus, blood in stool, or tarry black stool). Bishnu Gregory M.D. Deonna EscamillaRochester Regional HealthKatya NRachel DR: KRISTOPHER JOB#: [id number] CC: ROSY
--- NOTE | 2016-09-08 19:17 | Cardiology Report ---
APPROVED REPORT EKG Measurement Heart [id number] Normal sinus rhythm Normal ECG
== END 2016-08-25 18:35 | disposition home or self-care (01) | DRG 378 ==
LOC: 2E 20:36
DX: K92.2 Gastrointestinal hemorrhage, unspecified (principal); I82.4Z2 Acute embolism and thrombosis of unspecified deep veins of left distal lower extremity; E88.09 Other disorders of plasma-protein metabolism, not elsewhere classified; D64.9 Anemia, unspecified; F15.10 Other stimulant abuse, uncomplicated; D50.0 Iron deficiency anemia secondary to blood loss (chronic); Z59.0 Homelessness; J45.909 Unspecified asthma, uncomplicated; G31.84 Mild cognitive impairment of uncertain or unknown etiology; Z53.29 Procedure and treatment not carried out because of patient's decision for other reasons
CPT/HCPCS: 36415; 71010; 80053; 80300; 82270; 82378; 83735; 84100; 85025; 85610; 85651; 85730; 86140; 86850; 86900; 86901; 86920; 93005; 93970

== ENCOUNTER 2016-08-31 20:43 | Inpatient (IN) | payer MEDICARE, MEDICAID ==
[~2016-08-31] VITALS: Ht 180.3 cm; Wt 81.6 kg
[2016-08-31] MEDS ORDERED: Pantoprazole Inj IV ONE (22:00)
[2016-08-31] MEDS ORDERED: Mylanta II UD 30ml ORAL PRN (22:15)
[2016-08-31] MEDS ORDERED: Miralax 17gm pkt ORAL PRN (22:15)
[2016-08-31] MEDS ORDERED: Nitroglycerin Subl 0.4mg tab (Bottle Of 25) SL PRN (22:15)
[2016-08-31 22:39] VITALS: BP 131/80
[2016-08-31 22:54] LABS: BASOPHILS % (AUTO) 0.4 % (0.0-2.0); EOSINOPHILS % (AUTO) 0.9 % (0.0-3.0); LYMPHOCYTES % (AUTO) 7.3 % (20.0-45.0); MEAN CORPUSCULAR HEMOGLOBIN 23.7 PG (27.0-31.0); MEAN CORPUSCULAR HGB CONC 30.7 G/DL (32.0-36.0); MEAN CORPUSCULAR VOLUME 77 FL (80-99); MEAN PLATELET VOLUME 5.6 FL (6.5-10.1); MONOCYTES % (AUTO) 6.8 % (1.0-10.0); NEUTROPHILS % (AUTO) 84.6 % (45.0-75.0); PLATELET COUNT 541 K/UL (150-450); RED BLOOD COUNT 4.24 M/UL (4.70-6.10); RED CELL DISTRIBUTION WIDTH 21.3 % (11.6-14.8); WHITE BLOOD COUNT 13.6 K/UL (4.8-10.8)
[2016-08-31] MEDS ORDERED: NKM (23:02)
[2016-08-31 23:10] LABS: TROPONIN I < 0.30 ng/mL (<=0.30)
[2016-08-31 23:14] LABS: PROTHROMBIN TIME 10.2 SEC (9.30-11.50)
[2016-08-31 23:15] LABS: ALANINE AMINOTRANSFERASE 8 U/L (3-41); ALBUMIN/GLOBULIN RATIO 0.8 (1.0-2.7); ANION GAP 14 (5-15); ASPARTATE AMINO TRANSFERASE 9 U/L (5-40); CALCIUM 9.1 mg/dL (8.6-10.2); CARBON DIOXIDE 27 mEQ/L (20-30); CHLORIDE 97 mEQ/L (98-107); CREATININE 0.9 mg/dL (0.7-1.2); GLOMERULAR FILTRATION RATE > 60 mL/min (>60); HEMOLYSIS 4; LIPASE 16 U/L (< 60); POTASSIUM 4.1 mEQ/L (3.4-4.9); SODIUM 138 mEQ/L (135-145); TOTAL PROTEIN 6.8 g/dL (6.6-8.7)
[2016-08-31 23:24] VITALS: BP 142/69
[2016-08-31 23:25] LABS: CKMB < 1.5 ng/mL (< 6.7)
[2016-08-31 23:25] LABS: APPEARANCE,URINE CLEAR; KETONES,URINE NEGATIVE (NEGATIVE); LEUKOCYTE ESTERASE ,URINE NEGATIVE (NEGATIVE); NITRITE,URINE NEGATIVE (NEGATIVE); PH,URINE 6 (4.5-8.0); PROTEIN,URINE NEGATIVE (NEGATIVE); UROBILINOGEN,URINE 4 MG/DL (0.0-1.0)
[2016-08-31 23:30] VITALS: BP 142/85
[2016-08-31] MEDS ORDERED: Morphine Sulfate 2mg/ml Inj IVP PRN (23:45)
[2016-09-01] VITALS (10 sets, daily range): BP systolic 115–140; BP diastolic 61–84
--- NOTE | 2016-09-01 00:41 | Emergency Room Report ---
History of Present Illness General Chief Complaint: Gastrointestinal Illness Source: Patient Present Illness HPI 66-year-old male presents ED complaining of abdominal pain with vomiting. States he's been vomiting blood for the last 2 days. Note epigastric pain, sharp, 7/10, nonradiating. Denies chest pain or shortness of breath. Patient states that he was recently admitted here for GI bleed. Patient left AMA. Patient states that since he left his been having repeated episodes of vomiting he came back to be admitted. He agrees to complete workup and admission at this time. No other aggravating or relieving factors. Denies any other associated symptoms Allergies: Coded Allergies: No Known Allergies (Unverified , 08/23/16) Per pt, he has no known allergies Patient History Past Medical History: GI bleed Past Surgical History: none Pertinent Family History: none Social History: Denies: alcohol use, drug use, smoking Immunizations: UTD Reviewed Nursing Documentation: PMH: Agreed, PSxH: Agreed Nursing Documentation-PMH Hx Cardiac Problems: No Hx Asthma: No - Pt states "I used to have it as a child, not anymore" Hx Cancer: No Hx Gastrointestinal Problems: Yes Hx Neurological Problems: No Review of Systems All Other Systems: negative except mentioned in HPI Physical Exam Vital Signs Date Time Temp Pulse Resp B/P Pulse Ox O2 Delivery O2 Flow Rate FiO2 08/31/16 21:44 97.9 83 16 153/84 99 Room Air Sp02 EP Interpretation: reviewed, normal General Appearance: no apparent distress, alert, GCS 15, non-toxic Head: normocephalic, atraumatic Eyes: bilateral eye PERRL, bilateral eye normal inspection ENT: hearing grossly normal, normal pharynx, no angioedema, normal voice Neck: full range of motion, supple/symm/no masses Respiratory: chest non-tender, lungs clear, normal breath sounds, speaking full sentences Cardiovascular #1: regular rate, rhythm, no edema Cardiovascular #2: 2+ carotid (R), 2+ carotid (L), 2+ radial (R), 2+ radial (L) , 2+ dorsalis pedis (R), 2+ dorsalis pedis (L) Gastrointestinal: normal bowel sounds, soft, non-distended, no guarding, no rebound, tenderness - epigastric Rectal: deferred Genitourinary: normal inspection, no CVA tenderness Musculoskeletal: back normal, gait/station normal, normal range of motion, non- tender, calf tenderness Neurologic: alert, oriented x3, responsive, motor strength/tone normal, sensory intact, speech normal Psychiatric: judgement/insight normal, memory normal, mood/affect normal, no suicidal/homicidal ideation Reflexes: 3+ bicep (R), 3+ bicep (L), 3+ tricep (R), 3+ tricep (L), 3+ knee (R) , 3+ knee (L) Skin: normal color, no rash, warm/dry, well hydrated Lymphatic: no adenopathy Medical Decision Making Diagnostic Impression: Primary Impression: GI bleed Qualified Codes: K92.2 - Gastrointestinal hemorrhage, unspecified ER Course Hospital Course 66-year-old M presents to ED with abd pain, vomiting blood Differential diagnoses include: UGIB, LGIB, hemorrhoids Clinical course Patient placed on stretcher. cafeteria monitor. After initial history and physical I ordered labs, IV fluids, EKG, protonix, zofran Labs - no leukocytosis, Hb/Hct stable. electrolytes ok Patient agreed to admission at this time. Left AMA 2 days ago after being admitted for upper GI bleed. Was transfused at [place] prior to transfer to [place]. Case discussed with Dr. Gregory and he agreed to accept the patient to his service for further care and support I feel this is a highly complex case requiring extensive working including EKG/ Rhythm strip, Xray/CT/US, Blood/urine lab work, repeat exams while in ED, and administration of strong opiates/narcotics for pain control, admission to hospital or close patient follow up. Diagnosis - GI bleed Patient admitted to floor in serious condition Labs Test 08/31/16 22:30 08/31/16 22:54 White Blood Count 13.6 K/UL (4.8-10.8) Red Blood Count 4.24 M/UL (4.70-6.10) Hemoglobin 10.1 G/DL (14.2-18.0) Hematocrit 32.8 % (42.0-52.0) Mean Corpuscular Volume 77 FL (80-99) Mean Corpuscular Hemoglobin 23.7 PG (27.0-31.0) Mean Corpuscular Hemoglobin Concent 30.7 G/DL (32.0-36.0) Red Cell Distribution Width 21.3 % (11.6-14.8) Platelet Count 541 K/UL (150-450) Mean Platelet Volume 5.6 FL (6.5-10.1) Neutrophils (%) (Auto) 84.6 % (45.0-75.0) Lymphocytes (%) (Auto) 7.3 % (20.0-45.0) Monocytes (%) (Auto) 6.8 % (1.0-10.0) Eosinophils (%) (Auto) 0.9 % (0.0-3.0) Basophils (%) (Auto) 0.4 % (0.0-2.0) Prothrombin Time 10.2 SEC (9.30-11.50) Prothromb Time International Ratio 1.0 (0.9-1.1) Activated Partial Thromboplast Time 27 SEC (23-33) Sodium Level 138 mEQ/L (135-145) Potassium Level 4.1 mEQ/L (3.4-4.9) Chloride Level 97 mEQ/L (98-107) Carbon Dioxide Level 27 mEQ/L (20-30) Anion Gap 14 (5-15) Blood Urea Nitrogen 21 mg/dL (7-23) Creatinine 0.9 mg/dL (0.7-1.2) Estimat Glomerular Filtration Rate > 60 mL/min (>60) Glucose Level 112 mg/dL (74-106) Calcium Level 9.1 mg/dL (8.6-10.2) Total Bilirubin < 0.2 mg/dL (0.0-1.2) Aspartate Amino Transf (AST/SGOT) 9 U/L (5-40) Alanine Aminotransferase (ALT/SGPT) 8 U/L (3-41) Alkaline Phosphatase 51 U/L (40-129) Total Creatine Kinase 18 U/L (38-174) Creatine Kinase MB < 1.5 ng/mL (< 6.7) Creatine Kinase MB Relative Index 8.3 Troponin I < 0.30 ng/mL (<=0.30) Total Protein 6.8 g/dL (6.6-8.7) Albumin 3.2 g/dL (3.5-5.2) Globulin 3.6 g/dL Albumin/Globulin Ratio 0.8 (1.0-2.7) Lipase 16 U/L (< 60) Urine Color Yellow Urine Appearance Clear Urine pH 6 (4.5-8.0) Urine Specific [place] 1.020 (1.005-1.035) Urine Protein Negative (NEGATIVE) Urine Glucose (UA) Negative (NEGATIVE) Urine Ketones Negative (NEGATIVE) Urine Occult Blood Negative (NEGATIVE) Urine Nitrite Negative (NEGATIVE) Urine Bilirubin Negative (NEGATIVE) Urine Urobilinogen 4 MG/DL (0.0-1.0) Urine Leukocyte Esterase Negative (NEGATIVE) Urine Opiates Screen Negative (NEGATIVE) Urine Barbiturates Screen Negative (NEGATIVE) Phencyclidine (PCP) Screen Negative (NEGATIVE) Urine Amphetamines Screen Negative (NEGATIVE) Urine Benzodiazepines Screen Negative (NEGATIVE) Urine Cocaine Screen Negative (NEGATIVE) Urine Marijuana (THC) Screen Negative (NEGATIVE) EKG Diagnostic Results Rate: normal Rhythm: NSR ST Segments: no acute changes ASA given to the pt in ED: No Rhythm Strip Diag. Results EP Interpretation: yes Rhythm: NSR, no PVC's, no ectopy Last Vital Signs Date Time Temp Pulse Resp B/P Pulse Ox O2 Delivery O2 Flow Rate FiO2 08/31/16 23:30 98.2 80 16 142/85 100 Room Air Status: improved Disposition: ADMITTED INPATIENT Condition: Serious Referrals: NOT CHOSEN GURMEET/,REFERRING (PCP) MANNY URBINA M.D. Sep 01, 2016 00:41
[2016-09-01 06:38] LABS: BASOPHILS % (AUTO) 0.5 % (0.0-2.0); EOSINOPHILS % (AUTO) 1.6 % (0.0-3.0); LYMPHOCYTES % (AUTO) 8.3 % (20.0-45.0); MEAN CORPUSCULAR HEMOGLOBIN 24.1 PG (27.0-31.0); MEAN CORPUSCULAR HGB CONC 31.7 G/DL (32.0-36.0); MEAN CORPUSCULAR VOLUME 76 FL (80-99); MEAN PLATELET VOLUME 5.5 FL (6.5-10.1); MONOCYTES % (AUTO) 7.8 % (1.0-10.0); NEUTROPHILS % (AUTO) 81.8 % (45.0-75.0); PLATELET COUNT 503 K/UL (150-450); RED BLOOD COUNT 3.71 M/UL (4.70-6.10); RED CELL DISTRIBUTION WIDTH 21.8 % (11.6-14.8); WHITE BLOOD COUNT 11.2 K/UL (4.8-10.8)
[2016-09-01 06:39] LABS: PROTHROMBIN TIME 10.4 SEC (9.30-11.50)
[2016-09-01 06:50] LABS: ALANINE AMINOTRANSFERASE 6 U/L (3-41); ALBUMIN/GLOBULIN RATIO 0.8 (1.0-2.7); AMYLASE 26 U/L (10-110); ANION GAP 13 (5-15); ASPARTATE AMINO TRANSFERASE 7 U/L (5-40); CALCIUM 8.5 mg/dL (8.6-10.2); CARBON DIOXIDE 24 mEQ/L (20-30); CHLORIDE 101 mEQ/L (98-107); CREATININE 0.8 mg/dL (0.7-1.2); GLOMERULAR FILTRATION RATE > 60 mL/min (>60); HEMOLYSIS 0; LIPASE 14 U/L (< 60); POTASSIUM 3.7 mEQ/L (3.4-4.9); SODIUM 138 mEQ/L (135-145)
[2016-09-01] MEDS: D5NS 1,000 ML IV SCH ×3 (08:30→17:32)
--- NOTE | 2016-09-01 09:24 | GI Initial Consult Note ---
Alejandra Iraheta N.PMehrdad 09/01/16 0924: History of Present Illness General Date patient seen: Sep 01, 2016 Time patient seen: 09:15 Reason for Hospitalization: Gastrointestinal Illness Referring physician: ESTUARDO JOHNSON Reason for Consultation: GI BLEED Present Illness HPI 66-year-old male presents ED complaining of abdominal pain with vomiting. States he's been vomiting blood for the last 2 days. Note epigastric pain, sharp, 7/10, nonradiating. Denies chest pain or shortness of breath. Patient states that he was recently admitted here for GI bleed. Patient left AMA. Patient states that since he left his been having repeated episodes of vomiting he came back to be admitted. He agrees to complete workup and admission at this time. No other aggravating or relieving factors. Denies any other associated symptoms. GI Consult. HPI as noted above. GI consulted for acute GI bleed. The patient recently was admitted here at [place] 08/24/16 for anemia with low hemoglobin requiring blood transfusion. At the time, the patient was scheduled for EGD/ colonoscopy in which he refused and ultimately went AMA. Patient agrees to have work up done today. Hx of asthma. Denies any history of endoscopic procedures. Presents today with anemia, leukocytosis and hypoalbuminemia. Home Meds Reported Medications No Known Medications* (NKM - No Known Medications*) ., 0 ., 0 Refills 08/31/16 Med list reviewed/reconciled: Yes Allergies: Coded Allergies: No Known Allergies (Unverified , 08/23/16) Per pt, he has no known allergies Patient History History Provided By: Patient, Medical Record PMH Narrative Past Medical History: GI bleed Past Surgical History: none Pertinent Family History: none Social History: Denies: alcohol use, drug use, smoking Immunizations: UTD Reviewed Nursing Documentation: PMH: Agreed, PSxH: Agreed Nursing Documentation-PMH Hx Cardiac Problems: No Hx Asthma: No - Pt states "I used to have it as a child, not anymore" Hx Cancer: No Hx Gastrointestinal Problems: Yes Hx Neurological Problems: No Review of Systems All Other Systems: negative except mentioned in HPI Physical Exam Vital Signs Date Time Temp Pulse Resp B/P Pulse Ox O2 Delivery O2 Flow Rate FiO2 08/31/16 21:44 97.9 83 16 153/84 99 Room Air Sp02 EP Interpretation: reviewed Labs Laboratory Tests Test 08/31/16 22:30 08/31/16 22:54 09/01/16 05:40 White Blood Count 13.6 K/UL (4.8-10.8) H 11.2 K/UL (4.8-10.8) H Red Blood Count 4.24 M/UL (4.70-6.10) L 3.71 M/UL (4.70-6.10) L Hemoglobin 10.1 G/DL (14.2-18.0) L 9.0 G/DL (14.2-18.0) L Hematocrit 32.8 % (42.0-52.0) L 28.3 % (42.0-52.0) L Mean Corpuscular Volume 77 FL (80-99) L 76 FL (80-99) L Mean Corpuscular Hemoglobin 23.7 PG (27.0-31.0) L 24.1 PG (27.0-31.0) L Mean Corpuscular Hemoglobin Concent 30.7 G/DL (32.0-36.0) L 31.7 G/DL (32.0-36.0) L Red Cell Distribution Width 21.3 % (11.6-14.8) H 21.8 % (11.6-14.8) H Platelet Count 541 K/UL (150-450) H 503 K/UL (150-450) H Mean Platelet Volume 5.6 FL (6.5-10.1) L 5.5 FL (6.5-10.1) L Neutrophils (%) (Auto) 84.6 % (45.0-75.0) H 81.8 % (45.0-75.0) H Lymphocytes (%) (Auto) 7.3 % (20.0-45.0) L 8.3 % (20.0-45.0) L Monocytes (%) (Auto) 6.8 % (1.0-10.0) 7.8 % (1.0-10.0) Eosinophils (%) (Auto) 0.9 % (0.0-3.0) 1.6 % (0.0-3.0) Basophils (%) (Auto) 0.4 % (0.0-2.0) 0.5 % (0.0-2.0) Prothrombin Time 10.2 SEC (9.30-11.50) 10.4 SEC (9.30-11.50) Prothromb Time International Ratio 1.0 (0.9-1.1) 1.0 (0.9-1.1) Activated Partial Thromboplast Time 27 SEC (23-33) 30 SEC (23-33) Sodium Level 138 mEQ/L (135-145) 138 mEQ/L (135-145) Potassium Level 4.1 mEQ/L (3.4-4.9) 3.7 mEQ/L (3.4-4.9) Chloride Level 97 mEQ/L (98-107) L 101 mEQ/L (98-107) Carbon Dioxide Level 27 mEQ/L (20-30) 24 mEQ/L (20-30) Anion Gap 14 (5-15) 13 (5-15) Blood Urea Nitrogen 21 mg/dL (7-23) 17 mg/dL (7-23) Creatinine 0.9 mg/dL (0.7-1.2) 0.8 mg/dL (0.7-1.2) Estimat Glomerular Filtration Rate > 60 mL/min (>60) > 60 mL/min (>60) Glucose Level 112 mg/dL (74-106) H 115 mg/dL (74-106) H Calcium Level 9.1 mg/dL (8.6-10.2) 8.5 mg/dL (8.6-10.2) L Total Bilirubin < 0.2 mg/dL (0.0-1.2) < 0.2 mg/dL (0.0-1.2) Aspartate Amino Transf (AST/SGOT) 9 U/L (5-40) 7 U/L (5-40) Alanine Aminotransferase (ALT/SGPT) 8 U/L (3-41) 6 U/L (3-41) Alkaline Phosphatase 51 U/L (40-129) 48 U/L (40-129) Total Creatine Kinase 18 U/L (38-174) L Creatine Kinase MB < 1.5 ng/mL (< 6.7) Creatine Kinase MB Relative Index 8.3 Troponin I < 0.30 ng/mL (<=0.30) Total Protein 6.8 g/dL (6.6-8.7) 6.0 g/dL (6.6-8.7) L Albumin 3.2 g/dL (3.5-5.2) L 2.8 g/dL (3.5-5.2) L Globulin 3.6 g/dL 3.2 g/dL Albumin/Globulin Ratio 0.8 (1.0-2.7) L 0.8 (1.0-2.7) L Lipase 16 U/L (< 60) 14 U/L (< 60) Urine Color Yellow Urine Appearance Clear Urine pH 6 (4.5-8.0) Urine Specific [place] 1.020 (1.005-1.035) Urine Protein Negative (NEGATIVE) Urine Glucose (UA) Negative (NEGATIVE) Urine Ketones Negative (NEGATIVE) Urine Occult Blood Negative (NEGATIVE) Urine Nitrite Negative (NEGATIVE) Urine Bilirubin Negative (NEGATIVE) Urine Urobilinogen 4 MG/DL (0.0-1.0) H Urine Leukocyte Esterase Negative (NEGATIVE) Urine Opiates Screen Negative (NEGATIVE) Urine Barbiturates Screen Negative (NEGATIVE) Phencyclidine (PCP) Screen Negative (NEGATIVE) Urine Amphetamines Screen Negative (NEGATIVE) Urine Benzodiazepines Screen Negative (NEGATIVE) Urine Cocaine Screen Negative (NEGATIVE) Urine Marijuana (THC) Screen Negative (NEGATIVE) Amylase Level 26 U/L (10-110) General Appearance: well appearing, no apparent distress, alert Head: normocephalic EENT: PERRL/EOMI, normal ENT inspection Neck: thyroid normal Respiratory: normal breath sounds, no respiratory distress Cardiovascular: normal rate Gastrointestinal: non tender, normal bowel sounds Rectal: normal exam Musculoskeletal: normal inspection, back normal Neurologic: normal inspection, alert, oriented x3, responsive Psychiatric: normal inspection, judgement/insight normal, memory normal Skin: normal inspection, normal color, no rash, warm/dry Lymphatic: normal inspection, no adenopathy Current Medications Current Medications Medications (Trade) Dose Ordered Sig/Fabian Route PRN Reason Start Time Stop Time Status Last Admin Dose Admin Acetaminophen (Tylenol) 650 mg Q4H PRN ORAL fever 08/31/16 22:15 09/30/16 22:14 Al Hydroxide/Mg Hydroxide (Mylanta II) 30 ml Q6H PRN ORAL dyspepsia 08/31/16 22:15 09/30/16 22:14 Dextrose STAT PRN IV Hypoglycemia 6/22/17 22:15 09/30/16 22:14 Dextrose/Sodium Chloride (D5ns) 1,000 ml @ 100 mls/hr Q10H IV 08/31/16 22:08 09/30/16 22:07 09/01/16 08:30 Diphenhydramine HCl (Benadryl) 25 mg Q6H PRN ORAL Itching/Pruritis 08/31/16 22:15 09/30/16 22:14 Morphine Sulfate (Morphine Sulfate) 1 mg Q4H PRN IVP Moderate Pain (Pain Scale 4-6) 08/31/16 23:45 09/07/16 23:44 09/01/16 00:07 Morphine Sulfate (Morphine Sulfate) 2 mg Q4H PRN IVP severe Pain (Pain Scale 7-10) 08/31/16 22:15 09/07/16 22:14 Nitroglycerin (Ntg) 0.4 mg Q5M X 3 DOSES PRN SL Prn Chest Pain 08/31/16 22:15 09/30/16 22:14 Ondansetron HCl (Zofran) 4 mg Q6H PRN IVP Nausea & Vomiting 08/31/16 22:15 09/30/16 22:14 Polyethylene Glycol (Miralax) 17 gm HSPRN PRN ORAL Constipation 08/31/16 22:15 09/30/16 22:14 Temazepam (Restoril) 15 mg HSPRN PRN ORAL Insomnia 08/31/16 22:15 09/07/16 22:14 GI: Plan Problems: (1) GI bleed (2) Noncompliance by refusing intervention or support (3) Anemia, blood loss (4) Gastrointestinal hemorrhage (5) Hematemesis (6) Hypoalbuminemia (7) Leukocytosis Plan patient for EGD today, will consider colonoscopy sunday if unremarkable. - maintain NPO - hold all blood thinners ppi BID monitor H&H, transfuse prn fu labs Discussed with Dr. Lopez. Thank you for referring this patient, we will follow. ISREAL LOPEZ 09/01/16 1123: History of Present Illness General Reason for Hospitalization: Gastrointestinal Illness Present Illness Home Meds Reported Medications No Known Medications* (NKM - No Known Medications*) ., 0 ., 0 Refills 08/31/16 Allergies: Coded Allergies: No Known Allergies (Unverified , 08/23/16) Per pt, he has no known allergies GI: Plan Plan The patient was seen and examined at bedside and all new and available data was reviewed in the patients chart. I agree with the above findings, impression and plan. (Patient seen earlier today. Signature stamp does not reflect patient encounter time.). -[facility] Justin Avalos Sep 01, 2016 09:24 ISREAL LOPEZ Sep 01, 2016 11:23
[2016-09-01] MEDS ORDERED: D5NS 1000ml IV ONE (10:46)
--- NOTE | 2016-09-01 11:28 | Pre-Procedure Note/Attestation ---
Pre-Procedure Note/Attestation Complete Prior to Procedure Planned Procedure: not applicable Procedure Narrative: egd Indications for Procedure Pre-Operative Diagnosis: gib Attestation I attest that I discussed the nature of the procedure; its benefits; risks and complications; and alternatives (and the risks and benefits of such alternatives ), prior to the procedure, with the patient (or the patient's legal district representative). I attest that, if there was a reasonable possibility of needing a blood transfusion, the patient (or the patient's legal district representative) was given the [facility] standardized written summary, pursuant to the [place]ou[place] Lily Blood Safety Act ([place] Health and Safety Code # 1645, as amended). I attest that I re-evaluated the patient just prior to the surgery and that there has been no change in the patient's H&P, except as documented below: ELICIA LOPEZ Sep 01, 2016 11:28
[2016-09-01] MEDS ORDERED: Propofol 10mg/ml 20ml IV ONE (12:00)
[2016-09-01] MEDS ORDERED: NS 550ML IV ONE (12:10)
--- NOTE | 2016-09-01 12:19 | Immediate Post-Op Evaluation ---
Immediate Post-Op Evalulation Immediate Post-Op Evalulation Date of Evaluation: Sep 01, 2016 Time of Evaluation: 12:40 IV Fluids: 300 Blood Pressure Systolic: 107 Blood Pressure Diastolic: 76 Pulse Rate: 76 Respiratory Rate: 16 O2 Sat by Pulse Oximetry: 100 Temperature (Fahrenheit): 97.2 Pain Score (1-10): 0 Nausea: No Vomiting: No Complications none Patient Status: awake, patent, none Hydration Status: adequate Scottie Dillon MD Sep 01, 2016 12:19
--- NOTE | 2016-09-01 12:19 | Anethesia Preoperative Eval ---
Anesthesia Pre-op PMH/ROS General Date of Evaluation: Sep 01, 2016 Time of Evaluation: 12:05 Anesthesiologist: hammad ASA Score: ASA 4 Mallampati Score Class I : Soft palate, uvula, fauces, pillars visible Class II: Soft palate, uvula, fauces visible Class III: Soft palate, base of uvula visible Class IV: Only hard plate visible Mallampati Classification: Class II Surgeon: oh Diagnosis: GI Bleed Surgical Procedure: egd Anesthesia History: none Social History: drug use Allergies: Coded Allergies: No Known Allergies (Unverified , 08/23/16) Per pt, he has no known allergies Anesthesia Pre-op Phys. Exam Physician Exam Last Vital Signs Date Time Temp Pulse Resp B/P Pulse Ox O2 Delivery O2 Flow Rate FiO2 09/01/16 08:19 97.0 80 20 132/62 97 Room Air Airway Exam Mallampati Score: Class II Teeth: missing Anesthesia Pre-op A/P Labs Hematology Test 08/31/16 22:30 09/01/16 05:40 White Blood Count 13.6 K/UL (4.8-10.8) H 11.2 K/UL (4.8-10.8) H Red Blood Count 4.24 M/UL (4.70-6.10) L 3.71 M/UL (4.70-6.10) L Hemoglobin 10.1 G/DL (14.2-18.0) L 9.0 G/DL (14.2-18.0) L Hematocrit 32.8 % (42.0-52.0) L 28.3 % (42.0-52.0) L Mean Corpuscular Volume 77 FL (80-99) L 76 FL (80-99) L Mean Corpuscular Hemoglobin 23.7 PG (27.0-31.0) L 24.1 PG (27.0-31.0) L Mean Corpuscular Hemoglobin Concent 30.7 G/DL (32.0-36.0) L 31.7 G/DL (32.0-36.0) L Red Cell Distribution Width 21.3 % (11.6-14.8) H 21.8 % (11.6-14.8) H Platelet Count 541 K/UL (150-450) H 503 K/UL (150-450) H Mean Platelet Volume 5.6 FL (6.5-10.1) L 5.5 FL (6.5-10.1) L Neutrophils (%) (Auto) 84.6 % (45.0-75.0) H 81.8 % (45.0-75.0) H Lymphocytes (%) (Auto) 7.3 % (20.0-45.0) L 8.3 % (20.0-45.0) L Monocytes (%) (Auto) 6.8 % (1.0-10.0) 7.8 % (1.0-10.0) Eosinophils (%) (Auto) 0.9 % (0.0-3.0) 1.6 % (0.0-3.0) Basophils (%) (Auto) 0.4 % (0.0-2.0) 0.5 % (0.0-2.0) Coagulation Test 08/31/16 22:30 09/01/16 05:40 Prothrombin Time 10.2 SEC (9.30-11.50) 10.4 SEC (9.30-11.50) Prothromb Time International Ratio 1.0 (0.9-1.1) 1.0 (0.9-1.1) Activated Partial Thromboplast Time 27 SEC (23-33) 30 SEC (23-33) Chemistry Test 08/31/16 22:30 09/01/16 05:40 Sodium Level 138 mEQ/L (135-145) 138 mEQ/L (135-145) Potassium Level 4.1 mEQ/L (3.4-4.9) 3.7 mEQ/L (3.4-4.9) Chloride Level 97 mEQ/L (98-107) L 101 mEQ/L (98-107) Carbon Dioxide Level 27 mEQ/L (20-30) 24 mEQ/L (20-30) Anion Gap 14 (5-15) 13 (5-15) Blood Urea Nitrogen 21 mg/dL (7-23) 17 mg/dL (7-23) Creatinine 0.9 mg/dL (0.7-1.2) 0.8 mg/dL (0.7-1.2) Estimat Glomerular Filtration Rate > 60 mL/min (>60) > 60 mL/min (>60) Glucose Level 112 mg/dL (74-106) H 115 mg/dL (74-106) H Calcium Level 9.1 mg/dL (8.6-10.2) 8.5 mg/dL (8.6-10.2) L Total Bilirubin < 0.2 mg/dL (0.0-1.2) < 0.2 mg/dL (0.0-1.2) Aspartate Amino Transf (AST/SGOT) 9 U/L (5-40) 7 U/L (5-40) Alanine Aminotransferase (ALT/SGPT) 8 U/L (3-41) 6 U/L (3-41) Alkaline Phosphatase 51 U/L (40-129) 48 U/L (40-129) Total Creatine Kinase 18 U/L (38-174) L Creatine Kinase MB < 1.5 ng/mL (< 6.7) Creatine Kinase MB Relative Index 8.3 Troponin I < 0.30 ng/mL (<=0.30) Total Protein 6.8 g/dL (6.6-8.7) 6.0 g/dL (6.6-8.7) L Albumin 3.2 g/dL (3.5-5.2) L 2.8 g/dL (3.5-5.2) L Globulin 3.6 g/dL 3.2 g/dL Albumin/Globulin Ratio 0.8 (1.0-2.7) L 0.8 (1.0-2.7) L Lipase 16 U/L (< 60) 14 U/L (< 60) Amylase Level 26 U/L (10-110) Risk Assessment & Plan Plan: propofol Status Change Before Surgery: Scottie Portillo MD Sep 01, 2016 12:19
--- NOTE | 2016-09-01 12:21 | 48 Hour Post Anesthesia Eval ---
Post Anesthesia Evaluation Date of Evaluation: Sep 01, 2016 Airway: patent Nausea: No Vomiting: No Pain Intensity: 0 Hydration Status: adequate Cardiopulmonary Status: stable Mental Status/LOC: patient returned to baseline Follow-up Care/Observations: n/a Post-Anesthesia Complications: tolerated well Follow-up care needed: N/A Scottie Dillon MD Sep 01, 2016 12:21
--- NOTE | 2016-09-01 12:28 | Endoscopy Procedure Note ---
Endoscopy Procedure Note Indication for Procedure: gib Procedures Performed: EGD Operative Findings/Diagnosis: esoph ca Specimen: yes Pt Tolerated Procedure Well: Yes Estimated Blood Loss: none Anesthesiologist: hammad Anesthesia: MAC Implant(s) used?: No 50 yrs or older w/o bx or poly: Not Applicable 10yrs. F/U not recommended: Not Applicable ELICIA LOPEZ Sep 01, 2016 12:28
--- NOTE | 2016-09-01 12:33 | Consultation ---
History of Present Illness General Date patient seen: Sep 01, 2016 Chief Complaint: Gastrointestinal Illness Referring physician: ESTUARDO JOHNSON Reason for Consultation: GI BLEED Present Illness HPI 66-year-old male presented ED complaining of abdominal pain with vomiting. States he's been vomiting blood for the last 2 days. Note epigastric pain, sharp, 7/10, nonradiating. Denies chest pain or shortness of breath. No other aggravating or relieving factors. Denies any other associated symptoms Allergies: Coded Allergies: No Known Allergies (Unverified , 08/23/16) Per pt, he has no known allergies Medication History Scheduled No Known Medications* (NKM - No Known Medications*), 0 ., (Reported) Patient History Healthcare decision maker Resuscitation status Full Code Advanced Directive on File Past Medical/Surgical History Past Medical/Surgical History: (1) Homeless (2) Hypoalbuminemia (3) Gastrointestinal hemorrhage (4) Methamphetamine abuse Review of Systems All Other Systems: negative except mentioned in HPI Physical Exam General Appearance: WD/WN, no apparent distress Lines, tubes and drains: peripheral HEENT: normocephalic, atraumatic Neck: non-tender, normal alignment Respiratory/Chest: chest wall non-tender, lungs clear Breasts: no masses Cardiovascular/Chest: normal peripheral pulses, normal rate Abdomen: normal bowel sounds, non tender Genitourinary/Rectal: normal genital exam Extremities: normal range of motion Last 24 Hour Vital Signs Date Time Temp Pulse Resp B/P Pulse Ox O2 Delivery O2 Flow Rate FiO2 09/01/16 12:14 98.2 78 20 140/79 99 Room Air 09/01/16 08:19 97.0 80 20 132/62 97 Room Air 09/01/16 04:00 97.0 80 20 129/61 94 Room Air 08/31/16 23:30 98.2 80 16 142/85 100 Room Air 08/31/16 23:24 97.9 82 12 131/80 99 Room Air 08/31/16 23:24 97.9 82 12 142/69 100 Room Air 08/31/16 22:39 97.9 82 12 131/80 99 Room Air 08/31/16 21:44 97.9 83 16 153/84 99 Room Air Intake and Output 08/31/16 09/01/16 19:00 07:00 # Voids 1 # Bowel Movements 1 Laboratory Tests Test 08/31/16 22:30 08/31/16 22:54 09/01/16 05:40 White Blood Count 13.6 K/UL (4.8-10.8) H 11.2 K/UL (4.8-10.8) H Red Blood Count 4.24 M/UL (4.70-6.10) L 3.71 M/UL (4.70-6.10) L Hemoglobin 10.1 G/DL (14.2-18.0) L 9.0 G/DL (14.2-18.0) L Hematocrit 32.8 % (42.0-52.0) L 28.3 % (42.0-52.0) L Mean Corpuscular Volume 77 FL (80-99) L 76 FL (80-99) L Mean Corpuscular Hemoglobin 23.7 PG (27.0-31.0) L 24.1 PG (27.0-31.0) L Mean Corpuscular Hemoglobin Concent 30.7 G/DL (32.0-36.0) L 31.7 G/DL (32.0-36.0) L Red Cell Distribution Width 21.3 % (11.6-14.8) H 21.8 % (11.6-14.8) H Platelet Count 541 K/UL (150-450) H 503 K/UL (150-450) H Mean Platelet Volume 5.6 FL (6.5-10.1) L 5.5 FL (6.5-10.1) L Neutrophils (%) (Auto) 84.6 % (45.0-75.0) H 81.8 % (45.0-75.0) H Lymphocytes (%) (Auto) 7.3 % (20.0-45.0) L 8.3 % (20.0-45.0) L Monocytes (%) (Auto) 6.8 % (1.0-10.0) 7.8 % (1.0-10.0) Eosinophils (%) (Auto) 0.9 % (0.0-3.0) 1.6 % (0.0-3.0) Basophils (%) (Auto) 0.4 % (0.0-2.0) 0.5 % (0.0-2.0) Prothrombin Time 10.2 SEC (9.30-11.50) 10.4 SEC (9.30-11.50) Prothromb Time International Ratio 1.0 (0.9-1.1) 1.0 (0.9-1.1) Activated Partial Thromboplast Time 27 SEC (23-33) 30 SEC (23-33) Sodium Level 138 mEQ/L (135-145) 138 mEQ/L (135-145) Potassium Level 4.1 mEQ/L (3.4-4.9) 3.7 mEQ/L (3.4-4.9) Chloride Level 97 mEQ/L (98-107) L 101 mEQ/L (98-107) Carbon Dioxide Level 27 mEQ/L (20-30) 24 mEQ/L (20-30) Anion Gap 14 (5-15) 13 (5-15) Blood Urea Nitrogen 21 mg/dL (7-23) 17 mg/dL (7-23) Creatinine 0.9 mg/dL (0.7-1.2) 0.8 mg/dL (0.7-1.2) Estimat Glomerular Filtration Rate > 60 mL/min (>60) > 60 mL/min (>60) Glucose Level 112 mg/dL (74-106) H 115 mg/dL (74-106) H Calcium Level 9.1 mg/dL (8.6-10.2) 8.5 mg/dL (8.6-10.2) L Total Bilirubin < 0.2 mg/dL (0.0-1.2) < 0.2 mg/dL (0.0-1.2) Aspartate Amino Transf (AST/SGOT) 9 U/L (5-40) 7 U/L (5-40) Alanine Aminotransferase (ALT/SGPT) 8 U/L (3-41) 6 U/L (3-41) Alkaline Phosphatase 51 U/L (40-129) 48 U/L (40-129) Total Creatine Kinase 18 U/L (38-174) L Creatine Kinase MB < 1.5 ng/mL (< 6.7) Creatine Kinase MB Relative Index 8.3 Troponin I < 0.30 ng/mL (<=0.30) Total Protein 6.8 g/dL (6.6-8.7) 6.0 g/dL (6.6-8.7) L Albumin 3.2 g/dL (3.5-5.2) L 2.8 g/dL (3.5-5.2) L Globulin 3.6 g/dL 3.2 g/dL Albumin/Globulin Ratio 0.8 (1.0-2.7) L 0.8 (1.0-2.7) L Lipase 16 U/L (< 60) 14 U/L (< 60) Urine Color Yellow Urine Appearance Clear Urine pH 6 (4.5-8.0) Urine Specific [place] 1.020 (1.005-1.035) Urine Protein Negative (NEGATIVE) Urine Glucose (UA) Negative (NEGATIVE) Urine Ketones Negative (NEGATIVE) Urine Occult Blood Negative (NEGATIVE) Urine Nitrite Negative (NEGATIVE) Urine Bilirubin Negative (NEGATIVE) Urine Urobilinogen 4 MG/DL (0.0-1.0) H Urine Leukocyte Esterase Negative (NEGATIVE) Urine Opiates Screen Negative (NEGATIVE) Urine Barbiturates Screen Negative (NEGATIVE) Phencyclidine (PCP) Screen Negative (NEGATIVE) Urine Amphetamines Screen Negative (NEGATIVE) Urine Benzodiazepines Screen Negative (NEGATIVE) Urine Cocaine Screen Negative (NEGATIVE) Urine Marijuana (THC) Screen Negative (NEGATIVE) Amylase Level 26 U/L (10-110) Height (Feet): 5 Height (Inches): 11.00 Weight (Pounds): 180 Medications Current Medications Medications (Trade) Dose Ordered Sig/Fabian Route PRN Reason Start Time Stop Time Status Last Admin Dose Admin Acetaminophen (Tylenol) 650 mg Q4H PRN ORAL fever 08/31/16 22:15 09/30/16 22:14 Al Hydroxide/Mg Hydroxide (Mylanta II) 30 ml Q6H PRN ORAL dyspepsia 08/31/16 22:15 09/30/16 22:14 Dextrose STAT PRN IV Hypoglycemia 08/31/16 22:15 09/30/16 22:14 Dextrose/Sodium Chloride (D5ns) 1,000 ml @ 100 mls/hr Q10H IV 08/31/16 22:08 09/30/16 22:07 09/01/16 08:30 Diphenhydramine HCl (Benadryl) 25 mg Q6H PRN ORAL Itching/Pruritis 08/31/16 22:15 09/30/16 22:14 Morphine Sulfate (Morphine Sulfate) 2 mg Q4H PRN IVP severe Pain (Pain Scale 7-10) 08/31/16 22:15 09/07/16 22:14 Morphine Sulfate 1 mg 1 mg Q4H PRN IVP Moderate Pain (Pain Scale 4-6) 08/31/16 23:45 09/07/16 23:44 09/01/16 00:07 Nitroglycerin (Ntg) 0.4 mg Q5M X 3 DOSES PRN SL Prn Chest Pain 08/31/16 22:15 09/30/16 22:14 Ondansetron HCl (Zofran) 4 mg Q6H PRN IVP Nausea & Vomiting 08/31/16 22:15 09/30/16 22:14 09/01/16 11:49 Polyethylene Glycol (Miralax) 17 gm HSPRN PRN ORAL Constipation 08/31/16 22:15 09/30/16 22:14 Sodium Chloride (Sodium Chloride 1000ml bag) 1,000 ml @ 10 mls/hr Q24H IVLG 09/01/16 12:23 09/01/16 14:22 Temazepam (Restoril) 15 mg HSPRN PRN ORAL Insomnia 08/31/16 22:15 09/07/16 22:14 Assessment/Plan Problem List: (1) Hematemesis ICD Codes: K92.0 - Hematemesis SNOMED: 5696900 (2) Anemia ICD Codes: D64.9 - Anemia, unspecified SNOMED: 833180901 (3) Homeless ICD Codes: Z59.0 - Homelessness SNOMED: 18988725 (4) Methamphetamine abuse ICD Codes: F15.10 - Other stimulant abuse, uncomplicated SNOMED: 841402061 (5) History of asthma ICD Codes: Z87.09 - Personal history of other diseases of the respiratory system SNOMED: 907230295 Assessment/Plan NPO IV fluids check H/H GI evaluation dvt prophylaxis QUINTON FREEDMAN Sep 01, 2016 12:32
--- NOTE | 2016-09-01 16:24 | History & Physical ---
History and Physical History & Physicial Dictated for Int Med-Dr Gregory no. [id number] WILLIS DIANE Sep 01, 2016 16:24
--- NOTE | 2016-09-01 22:00 | Procedure Note ---
DATE OF PROCEDURE: 08/31/2016 SURGEON: Isreal Bassett M.D. PROCEDURE: Upper endoscopy with biopsy. ANESTHESIOLOGIST: Scottie Dillon M.D. INSTRUMENT: Olympus adult flexible upper endoscope. INDICATION: Upper gastrointestinal bleeding. REASON FOR PROCEDURE: The procedure, risks, benefits, and possible consequences, including hemorrhage, aspiration, perforation and infection, and alternative treatments, were explained to the patient/legal guardian by Dr. Isreal Bassett and the patient/legal guardian understood and accepted these risks. DESCRIPTION OF PROCEDURE: After informed consent was obtained and the patient was adequately sedated, Olympus upper endoscope was advanced from mouth into the second portion of duodenum and retroflexion was performed in the stomach. 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 It is hard to say if it is cardia cancer extending to the esophagus versus some of this extending to the cardia of the stomach. There was a little bit of stricture but we were able to pass the scope through. Multiple biopsy from this mass was obtained. The patient tolerated the procedure without complication. SUMMARY OF FINDINGS: Esophageal cancer versus gastric cancer extending to the esophagus, see above for details. PLAN: 1. Followup biopsy results. 2. [facility] CT. 3. CEA. 4. Oncology and surgical consultation. 5. If the patient is not a surgical candidate, we will recommend EGD with stent placement. We will follow. I want to thank, Dr. Bishnu Gregory for this kind referral. Isreal Bassett M.D. DR: Matt JOB#: [id number] CC: Bishnu Gregory M.D.; Fax#: [phone]
--- NOTE | 2016-09-01 23:15 | History and Physical Report ---
DATE OF ADMISSION: 08/31/2016 CHIEF COMPLAINT: The patient is a 66-year-old white male who presents with chief complaint of epigastric pain. HISTORY OF PRESENT ILLNESS: The patient was admitted to [facility] from 08/23/2016 to 08/25/2016. The patient was admitted with upper gastrointestinal bleeding. The patient received 2 units of packed RBCs at that time. The patient refused endoscopy at that time. The patient also refused colonoscopy at that time. The patient left against medical advice. The patient presented to [place] emergency room on 08/31/2016. The patient has been vomiting for 2 days. The patient had hematemesis. The patient was admitted for upper GI bleed. REVIEW OF SYSTEMS: Constitutional: The patient denies weight loss or weight gain. The patient denies fevers or chills. HEENT: The patient denies ear or throat pain. Cardiovascular: The patient denies palpitations or chest pain. Chest: The patient denies wheezing or shortness of breath. Abdominal: The patient complains of epigastric pain. The patient complains of hematemesis. The patient denies diarrhea or constipation. Genitourinary: The patient denies dysuria or increased frequency of urination. Neuromuscular: The patient denies seizures or generalized weakness. PAST MEDICAL HISTORY: Significant for, 1. Asthma. 2. Upper gastrointestinal hemorrhage as above. PAST SURGICAL HISTORY: The patient denies. CURRENT MEDICATIONS: The patient denies. ALLERGIES: No known drug allergies. SOCIAL HISTORY: The patient is single and lives at a "transitional living." The patient denies tobacco use. The patient states he quit drinking alcohol 2 months ago. The patient has a history of previous heavy alcohol abuse. PHYSICAL EXAMINATION: VITAL SIGNS: Temperature 97.6, respirations 16, pulse 76, and blood pressure 115/70. GENERAL: The patient is well developed, well nourished, thin appearing, disheveled white male, in no apparent distress. HEENT: Eyes, pupils are equal and responsive to light and accommodation. Extraocular movements are intact. NECK: Supple without lymphadenopathy. CHEST: Lungs are clear to auscultation bilaterally without wheezes or rales. CARDIOVASCULAR: Regular rhythm and rate. S1 and S2 normal without murmurs, rubs, or gallops. ABDOMEN: Soft and nondistended. Positive bowel sounds. Tenderness to palpation over the epigastric region. There is no rebound or guarding noted. EXTREMITIES: Negative for clubbing, cyanosis, or edema. RECTAL: Refused. GENITALIA: Refused. NEUROLOGIC: Cranial nerves II through XII are grossly intact without focal deficits. Motor strength is 5/5 bilaterally. Deep tendon reflexes are 2+ plantar. LABORATORY AND DIAGNOSTIC DATA: WBC 13.6, hemoglobin 10.1, hematocrit 32.8, and platelets 541,000. Sodium 138, potassium 4.1, chloride 97, CO2 27, BUN 29, creatinine 0.9, and glucose 112. Troponin less than 0.3. Urinalysis was within normal limits. ProTime 10.2, INR 1.0, and PTT 27. CT scan of the abdomen is pending. ASSESSMENT: This is a 66-year-old white male, 1. Hematemesis. 2. Upper gastrointestinal hemorrhage. 3. Epigastric pain. 4. History of asthma. 5. Homelessness TREATMENT: 1. Hematemesis/gastrointestinal hemorrhage/epigastric pain. A GI consultation is pending with Dr. Isreal Bassett. The patient will require endoscopy and colonoscopy during this hospitalization. We will follow recommendations of Gastroenterology. The patient has been started empirically on intravenous Protonix. 2. Asthma. 3. Homelessness Mohamud yMers M.D. DR: SATINDER JOB#: [id number] CC:
[2016-09-02] MEDS: D5NS 1,000 ML IV SCH ×3 (03:12→23:49)
[2016-09-02 04:00] VITALS: BP 142/91
[2016-09-02 08:00] VITALS: BP 132/74
--- NOTE | 2016-09-02 08:23 | General Progress Note ---
Assessment/Plan Problem List: (1) esoph/gastric Cancer (2) GI bleed ICD Codes: K92.2 - Gastrointestinal hemorrhage, unspecified SNOMED: 00634106 Qualifiers: Qualified Codes: K92.2 - Gastrointestinal hemorrhage, unspecified (3) Anemia ICD Codes: D64.9 - Anemia, unspecified SNOMED: [id number] Assessment/Plan CT reviewed large local lymph nodes most likely would need chemo/radation and esoph stent fu oncology recs Subjective ROS Limited/Unobtainable: Yes Allergies: Coded Allergies: No Known Allergies (Unverified , 08/23/16) Per pt, he has no known allergies Subjective no event Objective Last 24 Hour Vital Signs Date Time Temp Pulse Resp B/P Pulse Ox O2 Delivery O2 Flow Rate FiO2 09/02/16 04:00 97.9 77 19 142/91 99 Room Air 09/01/16 20:01 96.4 79 18 134/77 97 Room Air 09/01/16 16:39 98.3 89 20 133/84 99 Room Air 09/01/16 13:48 97.7 78 18 138/81 97 Room Air 09/01/16 12:57 97.4 75 19 123/78 99 Room Air 09/01/16 12:45 76 17 118/71 99 Room Air 09/01/16 12:44 76 16 100 09/01/16 12:40 75 15 118/75 99 Room Air 09/01/16 12:35 97.6 76 16 115/70 100 Nasal Cannula 3.0 09/01/16 12:14 98.2 78 20 140/79 99 Room Air Intake and Output 09/01/16 09/02/16 19:00 07:00 Intake Total 1290 ml 1200 ml Output Total 1000 ml 500 ml Balance 290 ml 700 ml Intake Oral 240 ml 200 ml IV Total 1050 ml 1000 ml Output Urine Total 1000 ml 500 ml Estimated Blood Loss 0 ml Height (Feet): 5 Height (Inches): 11.00 Weight (Pounds): 180 General Appearance: alert EENT: normal ENT inspection Neck: supple Cardiovascular: normal rate Respiratory/Chest: lungs clear Abdomen: normal bowel sounds, non tender, soft Extremities: non-tender ELICIA LOPEZ Sep 02, 2016 08:23
[2016-09-02 11:03] LABS: BASOPHILS % (AUTO) 0.6 % (0.0-2.0); EOSINOPHILS % (AUTO) 1.2 % (0.0-3.0); LYMPHOCYTES % (AUTO) 11.7 % (20.0-45.0); MEAN CORPUSCULAR HGB CONC 30.4 G/DL (32.0-36.0); MEAN CORPUSCULAR VOLUME 76 FL (80-99); MEAN PLATELET VOLUME 5.6 FL (6.5-10.1); MONOCYTES % (AUTO) 4.4 % (1.0-10.0); NEUTROPHILS % (AUTO) 82.2 % (45.0-75.0); PLATELET COUNT 443 K/UL (150-450); RED BLOOD COUNT 3.97 M/UL (4.70-6.10); RED CELL DISTRIBUTION WIDTH 21.4 % (11.6-14.8); WHITE BLOOD COUNT 9.7 K/UL (4.8-10.8)
[2016-09-02 11:21] LABS: ANION GAP 14 (5-15); CALCIUM 8.7 mg/dL (8.6-10.2); CARBON DIOXIDE 24 mEQ/L (20-30); CHLORIDE 99 mEQ/L (98-107); CREATININE 0.7 mg/dL (0.7-1.2); GLOMERULAR FILTRATION RATE > 60 mL/min (>60); HEMOLYSIS 2; POTASSIUM 3.5 mEQ/L (3.4-4.9); SODIUM 137 mEQ/L (135-145)
[2016-09-02 12:00] VITALS: BP 146/75
--- NOTE | 2016-09-02 13:56 | Internal Med Progress Note ---
Subjective Date of Service: Sep 02, 2016 Physician Name Mohamud Diane Attending Physician Bishnu Gregory MD Current Medications Medications (Trade) Dose Ordered Sig/Fabian Route PRN Reason Start Time Stop Time Status Last Admin Dose Admin Acetaminophen (Tylenol) 650 mg Q4H PRN ORAL fever 08/31/16 22:15 09/30/16 22:14 Al Hydroxide/Mg Hydroxide (Mylanta II) 30 ml Q6H PRN ORAL dyspepsia 08/31/16 22:15 09/30/16 22:14 Dextrose STAT PRN IV Hypoglycemia 08/31/16 22:15 09/30/16 22:14 Dextrose/Sodium Chloride (D5ns) 1,000 ml @ 100 mls/hr Q10H IV 08/31/16 22:08 09/30/16 22:07 09/02/16 13:11 Diphenhydramine HCl (Benadryl) 25 mg Q6H PRN ORAL Itching/Pruritis 08/31/16 22:15 09/30/16 22:14 Morphine Sulfate (Morphine Sulfate) 1 mg Q4H PRN IVP Moderate Pain (Pain Scale 4-6) 08/31/16 23:45 09/07/16 23:44 09/01/16 00:07 Morphine Sulfate (Morphine Sulfate) 2 mg Q4H PRN IVP severe Pain (Pain Scale 7-10) 08/31/16 22:15 09/07/16 22:14 Nitroglycerin (Ntg) 0.4 mg Q5M X 3 DOSES PRN SL Prn Chest Pain 08/31/16 22:15 09/30/16 22:14 Ondansetron HCl (Zofran) 4 mg Q6H PRN IVP Nausea & Vomiting 08/31/16 22:15 09/30/16 22:14 09/01/16 11:49 Pantoprazole (Protonix) 40 mg EVERY 12 HOURS ORAL 09/01/16 17:00 10/01/16 16:59 09/02/16 09:04 Polyethylene Glycol (Miralax) 17 gm HSPRN PRN ORAL Constipation 08/31/16 22:15 09/30/16 22:14 Temazepam (Restoril) 15 mg HSPRN PRN ORAL Insomnia 08/31/16 22:15 09/07/16 22:14 Allergies: Coded Allergies: No Known Allergies (Unverified , 08/23/16) Per pt, he has no known allergies ROS Limited/Unobtainable: No Constitutional: Reports: no symptoms HEENT: Reports: no symptoms Cardiovascular: Reports: no symptoms Respiratory: Reports: no symptoms Gastrointestinal/Abdominal: Reports: no symptoms Genitourinary: Reports: no symptoms Neurologic/Psychiatric: Reports: no symptoms Subjective 66 YO M admitted with hemetemesis and GI hemorrhage. Now esophageal cancer. S/ P endoscopy and colonoscopy on 09/01/16. Cover for Int Med-Dr Gregory. Objective Last Vital Signs Date Time Temp Pulse Resp B/P Pulse Ox O2 Delivery O2 Flow Rate FiO2 09/02/16 12:00 97.9 72 20 146/75 100 Room Air 09/01/16 12:35 3.0 Laboratory Tests Test 09/02/16 10:15 White Blood Count 9.7 K/UL (4.8-10.8) Red Blood Count 3.97 M/UL (4.70-6.10) L Hemoglobin 9.1 G/DL (14.2-18.0) L Hematocrit 30.0 % (42.0-52.0) L Mean Corpuscular Volume 76 FL (80-99) L Mean Corpuscular Hemoglobin 23.0 PG (27.0-31.0) L Mean Corpuscular Hemoglobin Concent 30.4 G/DL (32.0-36.0) L Red Cell Distribution Width 21.4 % (11.6-14.8) H Platelet Count 443 K/UL (150-450) Mean Platelet Volume 5.6 FL (6.5-10.1) L Neutrophils (%) (Auto) 82.2 % (45.0-75.0) H Lymphocytes (%) (Auto) 11.7 % (20.0-45.0) L Monocytes (%) (Auto) 4.4 % (1.0-10.0) Eosinophils (%) (Auto) 1.2 % (0.0-3.0) Basophils (%) (Auto) 0.6 % (0.0-2.0) Sodium Level 137 mEQ/L (135-145) Potassium Level 3.5 mEQ/L (3.4-4.9) Chloride Level 99 mEQ/L (98-107) Carbon Dioxide Level 24 mEQ/L (20-30) Anion Gap 14 (5-15) Blood Urea Nitrogen 9 mg/dL (7-23) Creatinine 0.7 mg/dL (0.7-1.2) Estimat Glomerular Filtration Rate > 60 mL/min (>60) Glucose Level 146 mg/dL (74-106) H Calcium Level 8.7 mg/dL (8.6-10.2) Carcinoembryonic Antigen 1.8 ng/mL Microbiology Date/Time Source Procedure Growth Status 08/31/16 23:12 Nasal Nares MRSA Culture - Final NO METHICILLIN RESISTANT STAPH AUREUS... Complete Intake and Output 09/01/16 09/02/16 19:00 07:00 Intake Total 1290 ml 1300 ml Output Total 1000 ml 500 ml Balance 290 ml 800 ml Intake Oral 240 ml 200 ml IV Total 1050 ml 1100 ml Output Urine Total 1000 ml 500 ml Estimated Blood Loss 0 ml Objective General: alert, cooperative, no distress, appears stated age Head: normocephalic, without obvious abnormality, atraumatic Eyes: conjunctivae/corneas clear. PERRL, EOM's intact Throat: lips, mucosa, and tongue normal. MMM Neck: supple, symmetrical, trachea midline, and no JVD Lungs: clear to auscultation bilaterally Heart: regular rate and rhythm, S1, S2 normal, no murmur, click, rub or gallop Abdomen: soft, non-tender, non-distended, bowel sounds normal; no masses or organomegaly Extremities: extremities normal, atraumatic, no cyanosis or edema Pulses: 2+ and symmetric Skin: skin color, texture, turgor normal; no rashes or lesions Neurologic: grossly normal, no focal deficits Assessment/Plan Problem List: (1) Cancer of esophagus Assessment & Plan: S/P endoscopy on 09/01/16. Await heme/onc consult. See GI note. (2) Gastrointestinal hemorrhage (3) Anemia, blood loss Assessment & Plan: hemoglobin stable. (4) Hematemesis Assessment & Plan: Due to esophageal cancer. (5) History of asthma (6) Homeless Status: not improved MOHAMUD DIANE Sep 02, 2016 13:56
[2016-09-02 16:00] VITALS: BP 126/74
--- NOTE | 2016-09-02 17:11 | Pulmonology Progress Note ---
Assessment/Plan Problems: (1) Hematemesis (2) Anemia (3) Homeless (4) Methamphetamine abuse (5) History of asthma Assessment/Plan prbc prn GI notes reviewed endoscopy report reviewed symptomatic treatment Subjective ROS Limited/Unobtainable: No Constitutional: Reports: no symptoms HEENT: Repors: no symptoms Respiratory: Reports: no symptoms Allergies: Coded Allergies: No Known Allergies (Unverified , 08/23/16) Per pt, he has no known allergies Objective Last 24 Hour Vital Signs Date Time Temp Pulse Resp B/P Pulse Ox O2 Delivery O2 Flow Rate FiO2 09/02/16 16:00 97.2 77 17 126/74 99 Room Air 09/02/16 12:00 97.9 72 20 146/75 100 Room Air 09/02/16 08:00 97.0 87 20 132/74 97 Room Air 09/02/16 04:00 97.9 77 19 142/91 99 Room Air 09/01/16 20:01 96.4 79 18 134/77 97 Room Air Intake and Output 09/01/16 09/02/16 19:00 07:00 Intake Total 1290 ml 1300 ml Output Total 1000 ml 500 ml Balance 290 ml 800 ml Intake Oral 240 ml 200 ml IV Total 1050 ml 1100 ml Output Urine Total 1000 ml 500 ml Estimated Blood Loss 0 ml General Appearance: WD/WN HEENT: normocephalic, atraumatic Respiratory/Chest: chest wall non-tender, lungs clear Cardiovascular: normal peripheral pulses, normal rate Abdomen: normal bowel sounds Genitourinary: normal external genitalia Extremities: no cyanosis Microbiology Date/Time Source Procedure Growth Status 08/31/16 23:12 Nasal Nares MRSA Culture - Final NO METHICILLIN RESISTANT STAPH AUREUS... Complete Laboratory Tests 09/02/16 10:15: White Blood Count 9.7, Red Blood Count 3.97L, Hemoglobin 9.1L, Hematocrit 30.0L , Mean Corpuscular Volume 76L, Mean Corpuscular Hemoglobin 23.0L, Mean Corpuscular Hemoglobin Concent 30.4L, Red Cell Distribution Width 21.4H, Platelet Count 443, Mean Platelet Volume 5.6L, Neutrophils (%) (Auto) 82.2H, Lymphocytes (%) (Auto) 11.7L, Monocytes (%) (Auto) 4.4, Eosinophils (%) (Auto) 1.2, Basophils (%) (Auto) 0.6, Sodium Level 137, Potassium Level 3.5, Chloride Level 99, Carbon Dioxide Level 24, Anion Gap 14, Blood Urea Nitrogen 9, Creatinine 0.7, Estimat Glomerular Filtration Rate > 60, Glucose Level 146H, Calcium Level 8.7, Carcinoembryonic Antigen 1.8 Current Medications Medications (Trade) Dose Ordered Sig/Fabian Route PRN Reason Start Time Stop Time Status Last Admin Dose Admin Acetaminophen (Tylenol) 650 mg Q4H PRN ORAL fever 08/31/16 22:15 09/30/16 22:14 Al Hydroxide/Mg Hydroxide (Mylanta II) 30 ml Q6H PRN ORAL dyspepsia 08/31/16 22:15 09/30/16 22:14 Dextrose STAT PRN IV Hypoglycemia 08/31/16 22:15 09/30/16 22:14 Dextrose/Sodium Chloride (D5ns) 1,000 ml @ 100 mls/hr Q10H IV 08/31/16 22:08 09/30/16 22:07 09/02/16 13:11 Diphenhydramine HCl (Benadryl) 25 mg Q6H PRN ORAL Itching/Pruritis 08/31/16 22:15 09/30/16 22:14 Morphine Sulfate (Morphine Sulfate) 1 mg Q4H PRN IVP Moderate Pain (Pain Scale 4-6) 08/31/16 23:45 09/07/16 23:44 09/01/16 00:07 Morphine Sulfate (Morphine Sulfate) 2 mg Q4H PRN IVP severe Pain (Pain Scale 7-10) 08/31/16 22:15 09/07/16 22:14 Nitroglycerin (Ntg) 0.4 mg Q5M X 3 DOSES PRN SL Prn Chest Pain 08/31/16 22:15 09/30/16 22:14 Ondansetron HCl (Zofran) 4 mg Q6H PRN IVP Nausea & Vomiting 08/31/16 22:15 09/30/16 22:14 09/01/16 11:49 Pantoprazole (Protonix) 40 mg EVERY 12 HOURS ORAL 09/01/16 17:00 10/01/16 16:59 09/02/16 09:04 Polyethylene Glycol (Miralax) 17 gm HSPRN PRN ORAL Constipation 08/31/16 22:15 09/30/16 22:14 Temazepam (Restoril) 15 mg HSPRN PRN ORAL Insomnia 08/31/16 22:15 09/07/16 22:14 QUINTON FREEDMAN Sep 02, 2016 17:11
[2016-09-02 20:07] VITALS: BP 113/71
--- NOTE | 2016-09-02 22:28 | Consultation ---
Consult Note Consult Note Heme/Onc Consult Note DOS: 09/02/16 ANDREINA ROJAS: [facility]: Eval of esophageal cancer ID: 66yo male admitted to [facility] from 08/23/2016 to 08/25/2016. The patient was admitted with upper gastrointestinal bleeding. The patient received 2 units of packed RBCs at that time. The patient refused endoscopy at that time. Left ama. Presented to [place] emergency room on 08/31/2016. The patient has been vomiting for 2 days. The patient had hematemesis. The patient was admitted for upper GI bleed. A endoscopy was done and results are pending at the moment, pathology is pending, and oncology consulted in regards to treatment. REVIEW OF SYSTEMS: Constitutional: The patient denies weight loss or weight gain. The patient denies fevers or chills. HEENT: The patient denies ear or throat pain. Cardiovascular: The patient denies palpitations or chest pain. Chest: The patient denies wheezing or shortness of breath. Abdominal: The patient complains of epigastric pain. The patient complains of hematemesis. The patient denies diarrhea or constipation. Genitourinary: The patient denies dysuria or increased frequency of urination. Neuromuscular: The patient denies seizures or generalized weakness. PAST MEDICAL HISTORY: 1. Asthma. 2. Upper gastrointestinal hemorrhage as above. PAST SURGICAL HISTORY: The patient denies. CURRENT MEDICATIONS: The patient denies. ALLERGIES: No known drug allergies. SOCIAL HISTORY: The patient is single and lives at a "transitional living." The patient denies tobacco use. The patient states he quit drinking alcohol 2 months ago. The patient has a history of previous heavy alcohol abuse. PHYSICAL EXAMINATION: VITAL SIGNS: Vitals are stable GENERAL: The patient is well developed, well nourished, thin appearing, disheveled white male, in no apparent distress. HEENT: Eyes, pupils are equal and responsive to light and accommodation. Extraocular movements are intact. NECK: Supple without lymphadenopathy. CHEST: Lungs are clear to auscultation bilaterally without wheezes or rales. CARDIOVASCULAR: Regular rhythm and rate. S1 and S2 normal without murmurs, rubs, or gallops. ABDOMEN: Soft and nondistended. Positive bowel sounds. Ttp over the epigastric region. EXTREMITIES: Negative for clubbing, cyanosis, or edema. NEUROLOGIC: Cranial nerves II through XII are grossly intact without focal deficits. LABORATORY AND DIAGNOSTIC DATA: WBC 13.6, hemoglobin 10.1, hematocrit 32.8, and platelets 541,000. Sodium 138, potassium 4.1, chloride 97, CO2 27, BUN 29, creatinine 0.9, and glucose 112. Troponin less than 0.3. Urinalysis was within normal limits. ProTime 10.2, INR 1.0, and PTT 27. CT scan of the abdomen pending ASSESSMENT/RECS: #. Esophageal cancer - final pathology report and ct scan of the chest/abdomen and pelvis are pending --> may need chemotherapy with radiation ---> followup on pathology and ct imaging ---> PPI has been ordered and pending #. Hematemesis. Anemia w/u has been ordered ---> followup if he needs iron #. Upper gastrointestinal hemorrhage. #. Epigastric pain. #. History of asthma. #. Homelessness Juanito Lund. Sep 02, 2016 22:28
[2016-09-03 00:03] VITALS: BP 131/72
[2016-09-03] MEDS: Morphine Sulfate 2mg/ml Inj IVP PRN ×2 (01:51→06:09)
[2016-09-03 04:00] VITALS: BP 133/77
[2016-09-03 07:28] LABS: MEAN CORPUSCULAR HEMOGLOBIN 23.1 PG (27.0-31.0); MEAN CORPUSCULAR HGB CONC 30.6 G/DL (32.0-36.0); MEAN CORPUSCULAR VOLUME 75 FL (80-99); MEAN PLATELET VOLUME 5.6 FL (6.5-10.1); PLATELET COUNT 512 K/UL (150-450); RED BLOOD COUNT 4.27 M/UL (4.70-6.10); RED CELL DISTRIBUTION WIDTH 21.5 % (11.6-14.8); WHITE BLOOD COUNT 10.1 K/UL (4.8-10.8)
--- NOTE | 2016-09-03 07:44 | General Progress Note ---
Assessment/Plan Problem List: (1) esoph/gastric Cancer (2) GI bleed ICD Codes: K92.2 - Gastrointestinal hemorrhage, unspecified SNOMED: [id number] Qualifiers: Qualified Codes: K92.2 - Gastrointestinal hemorrhage, unspecified (3) Anemia ICD Codes: D64.9 - Anemia, unspecified SNOMED: [id number] Assessment/Plan CT reviewed large local lymph nodes most likely would need chemo/radiation and esoph stent fu oncology recs Subjective ROS Limited/Unobtainable: Yes Allergies: Coded Allergies: No Known Allergies (Unverified , 08/23/16) Per pt, he has no known allergies Subjective no event Objective Last 24 Hour Vital Signs Date Time Temp Pulse Resp B/P Pulse Ox O2 Delivery O2 Flow Rate FiO2 09/03/16 06:39 97.7 09/03/16 04:00 97.7 76 19 133/77 98 Room Air 09/03/16 00:03 97.7 81 20 131/72 99 Room Air 09/02/16 20:07 97.6 66 19 113/71 98 Room Air 09/02/16 16:00 97.2 77 17 126/74 99 Room Air 09/02/16 12:00 97.9 72 20 146/75 100 Room Air 09/02/16 08:00 97.0 87 20 132/74 97 Room Air Intake and Output 09/02/16 09/03/16 19:00 07:00 Intake Total 1470 ml 1100 ml Output Total 1200 ml Balance 270 ml 1100 ml Intake Oral 770 ml IV Total 700 ml 1100 ml Output Urine Total 1200 ml # Voids 3 Laboratory Tests 09/02/16 10:15: White Blood Count 9.7, Red Blood Count 3.97L, Hemoglobin 9.1L, Hematocrit 30.0L , Mean Corpuscular Volume 76L, Mean Corpuscular Hemoglobin 23.0L, Mean Corpuscular Hemoglobin Concent 30.4L, Red Cell Distribution Width 21.4H, Platelet Count 443, Mean Platelet Volume 5.6L, Neutrophils (%) (Auto) 82.2H, Lymphocytes (%) (Auto) 11.7L, Monocytes (%) (Auto) 4.4, Eosinophils (%) (Auto) 1.2, Basophils (%) (Auto) 0.6, Sodium Level 137, Potassium Level 3.5, Chloride Level 99, Carbon Dioxide Level 24, Anion Gap 14, Blood Urea Nitrogen 9, Creatinine 0.7, Estimat Glomerular Filtration Rate > 60, Glucose Level 146H, Calcium Level 8.7, Carcinoembryonic Antigen 1.8 09/03/16 06:20: White Blood Count 10.1, Red Blood Count 4.27L, Hemoglobin 9.9L, Hematocrit 32.2L , Mean Corpuscular Volume 75L, Mean Corpuscular Hemoglobin 23.1L, Mean Corpuscular Hemoglobin Concent 30.6L, Red Cell Distribution Width 21.5H, Platelet Count 512H, Mean Platelet Volume 5.6L, Neutrophils (%) (Auto) , Lymphocytes (%) (Auto) , Monocytes (%) (Auto) , Eosinophils (%) (Auto) , Basophils (%) (Auto) , Sodium Level [Pending], Potassium Level [Pending], Chloride Level [Pending], Carbon Dioxide Level [Pending], Blood Urea Nitrogen [ Pending], Creatinine [Pending], Estimat Glomerular Filtration Rate [Pending], Glucose Level [Pending], Calcium Level [Pending], Neutrophils % (Manual) [ Pending], Lymphocytes % (Manual) [Pending], Platelet Estimate [Pending], Platelet Morphology [Pending], Reticulocyte Count [Pending], Iron Level [Pending ], Unsaturated Iron Binding [Pending], Ferritin [Pending], Lactate Dehydrogenase [Pending], Alpha Fetoprotein [Pending], CA 15-3 Antigen [Pending] , Prostate Specific Antigen [Pending], Vitamin B12 Level [Pending], Folate [ Pending] Height (Feet): 5 Height (Inches): 11.00 Weight (Pounds): 180 General Appearance: alert EENT: normal ENT inspection Neck: supple Cardiovascular: normal rate Respiratory/Chest: decreased breath sounds Abdomen: normal bowel sounds, non tender, soft Extremities: non-tender ELICIA LOPEZ Sep 03, 2016 07:44
[2016-09-03] MEDS: D5NS 1,000 ML IV SCH ×2 (07:46→20:13)
[2016-09-03 08:00] VITALS: BP 124/76
[2016-09-03 08:32] LABS: ANION GAP 16 (5-15); CALCIUM 8.9 mg/dL (8.6-10.2); CARBON DIOXIDE 24 mEQ/L (20-30); CHLORIDE 98 mEQ/L (98-107); CREATININE 0.7 mg/dL (0.7-1.2); GLOMERULAR FILTRATION RATE > 60 mL/min (>60); HEMOLYSIS 0; POTASSIUM 3.4 mEQ/L (3.4-4.9); SODIUM 138 mEQ/L (135-145)
[2016-09-03 09:45] LABS: ANISOCYTOSIS 2+; BAND NEUTROPHILS % (MANUAL) 0 % (0-8); BASOPHILS % (MANUAL) 0 % (0-2); EOSINOPHILS % (MANUAL) 1 % (0-3); HYPOCHROMASIA 1+; LYMPHOCYTES % (MANUAL) 8 % (20-45); MICROCYTES 1+; NEUTROPHILS % (MANUAL) 85 % (45-75); PLATELET ESTIMATE INCREASED; PLATELET MORPHOLOGY NORMAL; TOTAL CELLS COUNTED 100
[2016-09-03 09:55] LABS: PATH BLOOD SMEAR/OMC SENT TO PATHOLOGIST
[2016-09-03 12:00] VITALS: BP 118/68
--- NOTE | 2016-09-03 13:26 | Internal Med Progress Note ---
Subjective Date of Service: Sep 03, 2016 Physician Name Willis Myers Attending Physician Bishnu Gregory MD Current Medications Medications (Trade) Dose Ordered Sig/Fabian Route PRN Reason Start Time Stop Time Status Last Admin Dose Admin Acetaminophen (Tylenol) 650 mg Q4H PRN ORAL fever 08/31/16 22:15 09/30/16 22:14 Al Hydroxide/Mg Hydroxide (Mylanta II) 30 ml Q6H PRN ORAL dyspepsia 08/31/16 22:15 09/30/16 22:14 09/03/16 06:08 Dextrose STAT PRN IV Hypoglycemia 08/31/16 22:15 09/30/16 22:14 Dextrose/Sodium Chloride (D5ns) 1,000 ml @ 100 mls/hr Q10H IV 08/31/16 22:08 09/30/16 22:07 09/03/16 07:46 Diphenhydramine HCl (Benadryl) 25 mg Q6H PRN ORAL Itching/Pruritis 08/31/16 22:15 09/30/16 22:14 Morphine Sulfate (Morphine Sulfate) 1 mg Q4H PRN IVP Moderate Pain (Pain Scale 4-6) 08/31/16 23:45 09/07/16 23:44 09/01/16 00:07 Morphine Sulfate (Morphine Sulfate) 2 mg Q4H PRN IVP severe Pain (Pain Scale 7-10) 08/31/16 22:15 09/07/16 22:14 09/03/16 06:09 Nitroglycerin (Ntg) 0.4 mg Q5M X 3 DOSES PRN SL Prn Chest Pain 08/31/16 22:15 09/30/16 22:14 Ondansetron HCl (Zofran) 4 mg Q6H PRN IVP Nausea & Vomiting 08/31/16 22:15 09/30/16 22:14 09/03/16 09:47 Pantoprazole (Protonix) 40 mg EVERY 12 HOURS ORAL 09/01/16 17:00 10/01/16 16:59 09/03/16 07:45 Polyethylene Glycol (Miralax) 17 gm HSPRN PRN ORAL Constipation 08/31/16 22:15 09/30/16 22:14 Temazepam (Restoril) 15 mg HSPRN PRN ORAL Insomnia 08/31/16 22:15 09/07/16 22:14 09/02/16 21:11 Allergies: Coded Allergies: No Known Allergies (Unverified , 08/23/16) Per pt, he has no known allergies ROS Limited/Unobtainable: No Constitutional: Reports: no symptoms HEENT: Reports: no symptoms Cardiovascular: Reports: no symptoms Respiratory: Reports: no symptoms Gastrointestinal/Abdominal: Reports: other - hematemisis Genitourinary: Reports: no symptoms Neurologic/Psychiatric: Reports: no symptoms Subjective 66 YO M admitted with hemetemesis and GI hemorrhage. Now probable esophageal cancer. S/P endoscopy and colonoscopy on 09/01/16. Cover for Int [facility]-Dr Gregory. Objective Last Vital Signs Date Time Temp Pulse Resp B/P Pulse Ox O2 Delivery O2 Flow Rate FiO2 09/03/16 12:00 98.0 74 20 118/68 99 Room Air 09/01/16 12:35 3.0 Laboratory Tests Test 09/03/16 06:20 White Blood Count 10.1 K/UL (4.8-10.8) Red Blood Count 4.27 M/UL (4.70-6.10) L Hemoglobin 9.9 G/DL (14.2-18.0) L Hematocrit 32.2 % (42.0-52.0) L Mean Corpuscular Volume 75 FL (80-99) L Mean Corpuscular Hemoglobin 23.1 PG (27.0-31.0) L Mean Corpuscular Hemoglobin Concent 30.6 G/DL (32.0-36.0) L Red Cell Distribution Width 21.5 % (11.6-14.8) H Platelet Count 512 K/UL (150-450) H Mean Platelet Volume 5.6 FL (6.5-10.1) L Neutrophils (%) (Auto) % (45.0-75.0) Lymphocytes (%) (Auto) % (20.0-45.0) Monocytes (%) (Auto) % (1.0-10.0) Eosinophils (%) (Auto) % (0.0-3.0) Basophils (%) (Auto) % (0.0-2.0) Differential Total Cells Counted 100 Neutrophils % (Manual) 85 % (45-75) H Lymphocytes % (Manual) 8 % (20-45) L Monocytes % (Manual) 6 % (1-10) Eosinophils % (Manual) 1 % (0-3) Basophils % (Manual) 0 % (0-2) Band Neutrophils 0 % (0-8) Platelet Estimate Increased H Platelet Morphology Normal Hypochromasia 1+ Anisocytosis 2+ Microcytosis 1+ Reticulocyte Count 1.0 % (0.0-2.0) Sodium Level 138 mEQ/L (135-145) Potassium Level 3.4 mEQ/L (3.4-4.9) Chloride Level 98 mEQ/L (98-107) Carbon Dioxide Level 24 mEQ/L (20-30) Anion Gap 16 (5-15) H Blood Urea Nitrogen 9 mg/dL (7-23) Creatinine 0.7 mg/dL (0.7-1.2) Estimat Glomerular Filtration Rate > 60 mL/min (>60) Glucose Level 108 mg/dL (74-106) H Calcium Level 8.9 mg/dL (8.6-10.2) Iron Level 25 ug/dL (59-158) L Total Iron Binding Capacity 264 ug/dL (250-400) Percent Iron Saturation 9 % (15-50) L Unsaturated Iron Binding 239 ug/dL (112-346) Ferritin 24 ng/mL (10-230) Lactate Dehydrogenase 145 U/L (135-230) Alpha Fetoprotein Pending CA 15-3 Antigen Pending Prostate Specific Antigen 4.0 ng/mL (< 4.5) Vitamin B12 Level 597 pg/mL (211-946) Folate Pending Microbiology Date/Time Source Procedure Growth Status 08/31/16 23:12 Nasal Nares MRSA Culture - Final NO METHICILLIN RESISTANT STAPH AUREUS... Complete 08/31/16 23:12 Rectum VRE Culture - Final NO VANCOMYCIN RESISTANT ENTEROCOCCUS ... Complete Intake and Output 09/02/16 09/03/16 19:00 07:00 Intake Total 1470 ml 1200 ml Output Total 1200 ml Balance 270 ml 1200 ml Intake Oral 770 ml IV Total 700 ml 1200 ml Output Urine Total 1200 ml # Voids 3 Objective General: alert, cooperative, no distress, appears stated age Head: normocephalic, without obvious abnormality, atraumatic Eyes: conjunctivae/corneas clear. PERRL, EOM's intact Throat: lips, mucosa, and tongue normal. MMM Neck: supple, symmetrical, trachea midline, and no JVD Lungs: clear to auscultation bilaterally Heart: regular rate and rhythm, S1, S2 normal, no murmur, click, rub or gallop Abdomen: soft, non-tender, non-distended, bowel sounds normal; no masses or organomegaly Extremities: extremities normal, atraumatic, no cyanosis or edema Pulses: 2+ and symmetric Skin: skin color, texture, turgor normal; no rashes or lesions Neurologic: grossly normal, no focal deficits Assessment/Plan Problem List: (1) Cancer of esophagus Assessment & Plan: S/P endoscopy on 09/01/16-await path. See heme/onc consult. See GI note. (2) Gastrointestinal hemorrhage (3) Anemia, blood loss Assessment & Plan: hemoglobin stable. (4) Hematemesis Assessment & Plan: Due to esophageal cancer. (5) History of asthma (6) Homeless Status: WILLIS Guthrie Sep 03, 2016 13:26
[2016-09-03 16:00] VITALS: BP 131/89
--- NOTE | 2016-09-03 16:42 | Pulmonology Progress Note ---
Assessment/Plan Problems: (1) Esophageal cancer (2) Hematemesis (3) Anemia (4) Homeless (5) Methamphetamine abuse (6) History of asthma Assessment/Plan prbc prn GI notes reviewed endoscopy report reviewed symptomatic treatment considering pt is homeless and noncompliant, suggest comfort and palliative care Subjective ROS Limited/Unobtainable: No Constitutional: Reports: no symptoms HEENT: Repors: no symptoms Respiratory: Reports: no symptoms Cardiovascular: Reports: no symptoms Allergies: Coded Allergies: No Known Allergies (Unverified , 08/23/16) Per pt, he has no known allergies Objective Last 24 Hour Vital Signs Date Time Temp Pulse Resp B/P Pulse Ox O2 Delivery O2 Flow Rate FiO2 09/03/16 12:00 98.0 74 20 118/68 99 Room Air 09/03/16 08:00 98.2 84 20 124/76 96 Room Air 09/03/16 06:39 97.7 09/03/16 04:00 97.7 76 19 133/77 98 Room Air 09/03/16 00:03 97.7 81 20 131/72 99 Room Air 09/02/16 20:07 97.6 66 19 113/71 98 Room Air Intake and Output 09/02/16 09/03/16 19:00 07:00 Intake Total 1470 ml 1200 ml Output Total 1200 ml Balance 270 ml 1200 ml Intake Oral 770 ml IV Total 700 ml 1200 ml Output Urine Total 1200 ml # Voids 3 General Appearance: WD/WN HEENT: normocephalic Respiratory/Chest: chest wall non-tender, lungs clear Cardiovascular: normal peripheral pulses, normal rate Abdomen: normal bowel sounds, soft, non tender Genitourinary: normal external genitalia Extremities: no clubbing Skin: no rash Microbiology Date/Time Source Procedure Growth Status 08/31/16 23:12 Nasal Nares MRSA Culture - Final NO METHICILLIN RESISTANT STAPH AUREUS... Complete 08/31/16 23:12 Rectum VRE Culture - Final NO VANCOMYCIN RESISTANT ENTEROCOCCUS ... Complete Laboratory Tests 09/03/16 06:20: White Blood Count 10.1, Red Blood Count 4.27L, Hemoglobin 9.9L, Hematocrit 32.2L , Mean Corpuscular Volume 75L, Mean Corpuscular Hemoglobin 23.1L, Mean Corpuscular Hemoglobin Concent 30.6L, Red Cell Distribution Width 21.5H, Platelet Count 512H, Mean Platelet Volume 5.6L, Neutrophils (%) (Auto) , Lymphocytes (%) (Auto) , Monocytes (%) (Auto) , Eosinophils (%) (Auto) , Basophils (%) (Auto) , Differential Total Cells Counted 100, Neutrophils % ( Manual) 85H, Lymphocytes % (Manual) 8L, Monocytes % (Manual) 6, Eosinophils % ( Manual) 1, Basophils % (Manual) 0, Band Neutrophils 0, Platelet Estimate IncreasedH, Platelet Morphology Normal, Hypochromasia 1+, Anisocytosis 2+, Microcytosis 1+, Reticulocyte Count 1.0, Sodium Level 138, Potassium Level 3.4, Chloride Level 98, Carbon Dioxide Level 24, Anion Gap 16H, Blood Urea Nitrogen 9 , Creatinine 0.7, Estimat Glomerular Filtration Rate > 60, Glucose Level 108H, Calcium Level 8.9, Iron Level 25L, Total Iron Binding Capacity 264, Percent Iron Saturation 9L, Unsaturated Iron Binding 239, Ferritin 24, Lactate Dehydrogenase 145, Alpha Fetoprotein [Pending], CA 15-3 Antigen [Pending], Prostate Specific Antigen 4.0, Vitamin B12 Level 597, Folate [Pending] Current Medications Medications (Trade) Dose Ordered Sig/Fabian Route PRN Reason Start Time Stop Time Status Last Admin Dose Admin Acetaminophen (Tylenol) 650 mg Q4H PRN ORAL fever 08/31/16 22:15 09/30/16 22:14 Al Hydroxide/Mg Hydroxide (Mylanta II) 30 ml Q6H PRN ORAL dyspepsia 08/31/16 22:15 09/30/16 22:14 09/03/16 06:08 Dextrose STAT PRN IV Hypoglycemia 08/31/16 22:15 09/30/16 22:14 Dextrose/Sodium Chloride (D5ns) 1,000 ml @ 100 mls/hr Q10H IV 08/31/16 22:08 09/30/16 22:07 09/03/16 07:46 Diphenhydramine HCl (Benadryl) 25 mg Q6H PRN ORAL Itching/Pruritis 08/31/16 22:15 09/30/16 22:14 Morphine Sulfate (Morphine Sulfate) 1 mg Q4H PRN IVP Moderate Pain (Pain Scale 4-6) 08/31/16 23:45 09/07/16 23:44 09/01/16 00:07 Morphine Sulfate (Morphine Sulfate) 2 mg Q4H PRN IVP severe Pain (Pain Scale 7-10) 08/31/16 22:15 09/07/16 22:14 09/03/16 06:09 Nitroglycerin (Ntg) 0.4 mg Q5M X 3 DOSES PRN SL Prn Chest Pain 08/31/16 22:15 09/30/16 22:14 Ondansetron HCl (Zofran) 4 mg Q6H PRN IVP Nausea & Vomiting 08/31/16 22:15 09/30/16 22:14 09/03/16 09:47 Pantoprazole (Protonix) 40 mg EVERY 12 HOURS ORAL 09/01/16 17:00 10/01/16 16:59 09/03/16 07:45 Polyethylene Glycol (Miralax) 17 gm HSPRN PRN ORAL Constipation 08/31/16 22:15 09/30/16 22:14 Temazepam (Restoril) 15 mg HSPRN PRN ORAL Insomnia 08/31/16 22:15 09/07/16 22:14 09/02/16 21:11 QUINTON FREEDMAN Sep 03, 2016 16:42
[2016-09-03 20:08] VITALS: BP 134/67
[2016-09-04 00:28] VITALS: BP 140/73
[2016-09-04 04:10] VITALS: BP 138/70
[2016-09-04] MEDS: D5NS 1,000 ML IV SCH ×2 (06:03→16:08)
[2016-09-04 06:46] LABS: ALANINE AMINOTRANSFERASE 8 U/L (3-41); ALBUMIN/GLOBULIN RATIO 0.8 (1.0-2.7); ANION GAP 17 (5-15); ASPARTATE AMINO TRANSFERASE 10 U/L (5-40); CALCIUM 9.1 mg/dL (8.6-10.2); CARBON DIOXIDE 25 mEQ/L (20-30); CHLORIDE 99 mEQ/L (98-107); CREATININE 0.7 mg/dL (0.7-1.2); GLOMERULAR FILTRATION RATE > 60 mL/min (>60); HEMOLYSIS 0; POTASSIUM 3.4 mEQ/L (3.4-4.9); SODIUM 141 mEQ/L (135-145); TOTAL PROTEIN 6.2 g/dL (6.6-8.7)
[2016-09-04 07:02] LABS: MEAN CORPUSCULAR HEMOGLOBIN 23.1 PG (27.0-31.0); MEAN CORPUSCULAR HGB CONC 30.8 G/DL (32.0-36.0); MEAN CORPUSCULAR VOLUME 75 FL (80-99); MEAN PLATELET VOLUME 5.6 FL (6.5-10.1); PLATELET COUNT 514 K/UL (150-450); RED CELL DISTRIBUTION WIDTH 21.4 % (11.6-14.8); WHITE BLOOD COUNT 9.5 K/UL (4.8-10.8)
[2016-09-04 07:29] LABS: MAGNESIUM 1.8 mg/dL (1.7-2.5); PHOSPHORUS 3.6 mg/dL (2.5-4.8)
[2016-09-04 08:00] VITALS: BP 113/50
[2016-09-04 08:26] LABS: ANISOCYTOSIS 2+; BAND NEUTROPHILS % (MANUAL) 0 % (0-8); BASOPHILS % (MANUAL) 0 % (0-2); EOSINOPHILS % (MANUAL) 4 % (0-3); HYPOCHROMASIA 1+; LYMPHOCYTES % (MANUAL) 10 % (20-45); MICROCYTES 1+; NEUTROPHILS % (MANUAL) 83 % (45-75); PLATELET ESTIMATE INCREASED; PLATELET MORPHOLOGY NORMAL; TOTAL CELLS COUNTED 100
--- NOTE | 2016-09-04 08:53 | Diagnostic Imaging Report ---
Indication: Abdominal pain Technique: Patient ingested oral contrast. IV administration nonionic contrast. Multiphasic spiral acquisitions obtained through the chest, abdomen, and pelvis. Multiplanar reconstructions were generated. Total dose length product 1306 mGycm. CTDIvol(s) 13 and 13 mGy. Radiation dose was minimized using automated exposure control Comparison: None Findings: Chest: The lungs are essentially clear. No masses, infiltrates, nodules, or effusions. There is minimal posterior dependent atelectasis at the right lung base. There is a large mass involving the the distal esophagus as well as what is probably gastric fundus within a hiatal hernia. This mass is very large, measuring up to 6 cm in diameter and 9 cm in length. It obliterates the boundary between the gastric cardia and the distal esophagus. There is lesser sac adenopathy, with an enlarged node immediately adjacent to the mass anterior to the abdominal aorta measuring 3.3 cm long axis dimension, and another node within the diaphragmatic hiatus measuring 2.8 cm diameter. The subdiaphragmatic stomach appears unremarkable, as does the duodenum. No pericardial effusion. The heart size is normal. No mediastinal or hilar mass or adenopathy. The thyroid demonstrates multiple subcentimeter nodules, all as well as an 11 mm calcified right lobe nodule, which is incompletely included. No axillary or chest wall mass or adenopathy. The bones are unremarkable except for mild degenerative proliferative changes of the thoracic spine. Abdomen pelvis: The appendix is normal. There are occasional small colonic diverticula. No evidence of diverticulitis. There is a small fat-containing left inguinal hernia. The appendix is normal. No small bowel distention or small bowel wall thickening. The liver, gallbladder, bile ducts, pancreas, spleen, adrenals are unremarkable. In the interpolar region of the right kidney, there is an exophytic 14 mm mass which demonstrates attenuation and contrast enhancement similar to normal renal parenchyma there is an exophytic bilobed upper pole right renal cyst. There are multiple bilateral parapelvic cysts. No calculi, hydronephrosis, or hydroureter. There is an unusual cyst which is medial to the upper pole of the right kidney, separate from it but otherwise somewhat similar appearance to the adjacent parapelvic cysts. No hydronephrosis or hydroureter. The bladder demonstrates a large left posterior diverticulum. The prostate is enlarged, measuring 4.3 cm AP by 4.5 cm transverse. No pelvic mass or adenopathy. There are degenerative changes of both hips. There is considerable degenerative lumbar spondylosis Impression: 6 x 9 cm mass involving the distal esophagus and probably an intrathoracic component of the gastric cardia. There is adjacent lymphadenopathy, with 2 large nodes, measuring 3.3 cm diameter, highly suspicious for metastatic lymphadenopathy. No definite evidence of hepatic or pulmonary metastases 14 mm exophytic right renal mass demonstrate nonspecific soft tissue attenuation. While possibly a complex exophytic cyst, the possibility of a renal neoplasm needs to be excluded. Multiple thyroid nodules, including an 11 mm calcified right lobe nodule. Consider thyroid sonography for further evaluation if clinically indicated Multiple renal parapelvic cysts. Unusual cyst medial to the upper pole the right kidney, may be an ectopic parapelvic cyst Colonic diverticulosis. No evidence of diverticulitis Large posterior bladder diverticulum Prostatomegaly Other findings as noted, including degenerative lumbar spondylosis, a fat-containing left inguinal hernia Findings discussed by phone with Dr. Bassett at the time of interpretation The CT scanner at [facility] is accredited by the [employer] and the scans are performed using protocols designed to limit radiation exposure to as low as r -- easonably achievable to attain images of sufficient resolution adequate for diagnostic evaluation.
[2016-09-04 12:00] VITALS: BP 119/76
--- NOTE | 2016-09-04 12:50 | GI Progress Note ---
Assessment/Plan Problems: (1) Esophageal cancer ICD Codes: C15.9 - Malignant neoplasm of esophagus, unspecified SNOMED: 612296473, 966349363 (2) Cancer of esophagus ICD Codes: C15.9 - Malignant neoplasm of esophagus, unspecified SNOMED: 106319362, 094246056 (3) Anemia ICD Codes: D64.9 - Anemia, unspecified SNOMED: 115714517 (4) Methamphetamine abuse ICD Codes: F15.10 - Other stimulant abuse, uncomplicated SNOMED: 428829159 (5) Noncompliance by refusing intervention or support ICD Codes: Z53.29 - Procedure and treatment not carried out because of patient' s decision for other reasons SNOMED: 035185654 (6) Anemia, blood loss ICD Codes: D50.0 - Iron deficiency anemia secondary to blood loss (chronic) SNOMED: 807099274 (7) Hypoalbuminemia ICD Codes: E88.09 - Other disorders of plasma-protein metabolism, not elsewhere classified SNOMED: 487047666 (8) Leukocytosis ICD Codes: D72.829 - Elevated white blood cell count, unspecified SNOMED: 553241199, 995460866 (9) Gastrointestinal hemorrhage ICD Codes: K92.2 - Gastrointestinal hemorrhage, unspecified SNOMED: 43997097 (10) Hematemesis ICD Codes: K92.0 - Hematemesis SNOMED: 8497572 Status: stable, unchanged Status Narrative Discussed with Dr. Bassett. Assessment/Plan CT reviewed >> 6 x 9 cm mass involving the distal esophagus and probably an intrathoracic component of the gastric cardia. There is adjacent lymphadenopathy , with 2 large nodes, measuring 3.3 cm diameter, highly suspicious for metastatic lymphadenopathy. most likely would need chemo/radiation and esoph stent ppi fu oncology recs fu labs Subjective Gastrointestinal/Abdominal: Reports: no symptoms Objective Last 24 Hour Vital Signs Date Time Temp Pulse Resp B/P Pulse Ox O2 Delivery O2 Flow Rate FiO2 09/04/16 12:00 97.2 85 17 119/76 97 Room Air 09/04/16 08:00 97.5 94 19 113/50 99 Room Air 09/04/16 04:10 98.1 89 17 138/70 95 Room Air 09/04/16 00:28 97.9 90 18 140/73 100 Room Air 09/03/16 20:08 97.5 81 18 134/67 99 Room Air 09/03/16 16:00 98.9 91 18 131/89 98 Room Air Intake and Output 09/03/16 09/04/16 19:00 07:00 Intake Total 1000 ml 1100 ml Output Total 600 ml 500 ml Balance 400 ml 600 ml Intake Oral 100 ml IV Total 1000 ml 1000 ml Output Urine Total 600 ml 500 ml # Voids 2 Laboratory Tests Test 09/04/16 05:40 White Blood Count 9.5 K/UL (4.8-10.8) Red Blood Count 4.20 M/UL (4.70-6.10) L Hemoglobin 9.7 G/DL (14.2-18.0) L Hematocrit 31.5 % (42.0-52.0) L Mean Corpuscular Volume 75 FL (80-99) L Mean Corpuscular Hemoglobin 23.1 PG (27.0-31.0) L Mean Corpuscular Hemoglobin Concent 30.8 G/DL (32.0-36.0) L Red Cell Distribution Width 21.4 % (11.6-14.8) H Platelet Count 514 K/UL (150-450) H Mean Platelet Volume 5.6 FL (6.5-10.1) L Neutrophils (%) (Auto) % (45.0-75.0) Lymphocytes (%) (Auto) % (20.0-45.0) Monocytes (%) (Auto) % (1.0-10.0) Eosinophils (%) (Auto) % (0.0-3.0) Basophils (%) (Auto) % (0.0-2.0) Differential Total Cells Counted 100 Neutrophils % (Manual) 83 % (45-75) H Lymphocytes % (Manual) 10 % (20-45) L Monocytes % (Manual) 3 % (1-10) Eosinophils % (Manual) 4 % (0-3) H Basophils % (Manual) 0 % (0-2) Band Neutrophils 0 % (0-8) Platelet Estimate Increased H Platelet Morphology Normal Hypochromasia 1+ Anisocytosis 2+ Microcytosis 1+ Sodium Level 141 mEQ/L (135-145) Potassium Level 3.4 mEQ/L (3.4-4.9) Chloride Level 99 mEQ/L (98-107) Carbon Dioxide Level 25 mEQ/L (20-30) Anion Gap 17 (5-15) H Blood Urea Nitrogen 9 mg/dL (7-23) Creatinine 0.7 mg/dL (0.7-1.2) Estimat Glomerular Filtration Rate > 60 mL/min (>60) Glucose Level 123 mg/dL (74-106) H Calcium Level 9.1 mg/dL (8.6-10.2) Phosphorus Level 3.6 mg/dL (2.5-4.8) Magnesium Level 1.8 mg/dL (1.7-2.5) Total Bilirubin < 0.2 mg/dL (0.0-1.2) Aspartate Amino Transf (AST/SGOT) 10 U/L (5-40) Alanine Aminotransferase (ALT/SGPT) 8 U/L (3-41) Alkaline Phosphatase 59 U/L (40-129) Total Protein 6.2 g/dL (6.6-8.7) L Albumin 2.8 g/dL (3.5-5.2) L Globulin 3.4 g/dL Albumin/Globulin Ratio 0.8 (1.0-2.7) L Height (Feet): 5 Height (Inches): 11.00 Weight (Pounds): 180 General Appearance: no apparent distress, alert Cardiovascular: normal rate Respiratory/Chest: normal breath sounds, no respiratory distress Abdominal Exam: normal bowel sounds, non tender, soft Extremities: normal range of motion Alejandra Iraheta N.P. Sep 04, 2016 12:50
[2016-09-04 16:00] VITALS: BP 121/67
--- NOTE | 2016-09-04 18:06 | Internal Med Progress Note ---
Subjective Date of Service: Sep 04, 2016 Physician Name Willis Myers Attending Physician Bishnu Gregory MD Current Medications Medications (Trade) Dose Ordered Sig/Fabian Route PRN Reason Start Time Stop Time Status Last Admin Dose Admin Acetaminophen (Tylenol) 650 mg Q4H PRN ORAL fever 08/31/16 22:15 09/30/16 22:14 Al Hydroxide/Mg Hydroxide (Mylanta II) 30 ml Q6H PRN ORAL dyspepsia 08/31/16 22:15 09/30/16 22:14 09/03/16 06:08 Dextrose STAT PRN IV Hypoglycemia 08/31/16 22:15 09/30/16 22:14 Dextrose/Sodium Chloride (D5ns) 1,000 ml @ 100 mls/hr Q10H IV 08/31/16 22:08 09/30/16 22:07 09/04/16 06:03 Diphenhydramine HCl (Benadryl) 25 mg Q6H PRN ORAL Itching/Pruritis 08/31/16 22:15 09/30/16 22:14 Morphine Sulfate (Morphine Sulfate) 1 mg Q4H PRN IVP Moderate Pain (Pain Scale 4-6) 08/31/16 23:45 09/07/16 23:44 09/01/16 00:07 Morphine Sulfate (Morphine Sulfate) 2 mg Q4H PRN IVP severe Pain (Pain Scale 7-10) 08/31/16 22:15 09/07/16 22:14 09/03/16 06:09 Nitroglycerin (Ntg) 0.4 mg Q5M X 3 DOSES PRN SL Prn Chest Pain 08/31/16 22:15 09/30/16 22:14 Ondansetron HCl (Zofran) 4 mg Q6H PRN IVP Nausea & Vomiting 08/31/16 22:15 09/30/16 22:14 09/03/16 09:47 Pantoprazole (Protonix) 40 mg EVERY 12 HOURS ORAL 09/01/16 17:00 10/01/16 16:59 09/04/16 08:22 Polyethylene Glycol (Miralax) 17 gm HSPRN PRN ORAL Constipation 08/31/16 22:15 09/30/16 22:14 Temazepam (Restoril) 15 mg HSPRN PRN ORAL Insomnia 08/31/16 22:15 09/07/16 22:14 09/02/16 21:11 Allergies: Coded Allergies: No Known Allergies (Unverified , 08/23/16) Per pt, he has no known allergies ROS Limited/Unobtainable: No Constitutional: Reports: no symptoms HEENT: Reports: no symptoms Cardiovascular: Reports: no symptoms Respiratory: Reports: no symptoms Gastrointestinal/Abdominal: Reports: no symptoms Genitourinary: Reports: no symptoms Subjective 66 YO M admitted with hemetemesis and GI hemorrhage. Now probable esophageal cancer. S/P endoscopy and colonoscopy on 09/01/16. Cover for Int [facility]-Dr Gregory. Objective Last Vital Signs Date Time Temp Pulse Resp B/P Pulse Ox O2 Delivery O2 Flow Rate FiO2 09/04/16 16:00 97.2 79 18 121/67 98 Room Air 09/01/16 12:35 3.0 Laboratory Tests Test 09/04/16 05:40 White Blood Count 9.5 K/UL (4.8-10.8) Red Blood Count 4.20 M/UL (4.70-6.10) L Hemoglobin 9.7 G/DL (14.2-18.0) L Hematocrit 31.5 % (42.0-52.0) L Mean Corpuscular Volume 75 FL (80-99) L Mean Corpuscular Hemoglobin 23.1 PG (27.0-31.0) L Mean Corpuscular Hemoglobin Concent 30.8 G/DL (32.0-36.0) L Red Cell Distribution Width 21.4 % (11.6-14.8) H Platelet Count 514 K/UL (150-450) H Mean Platelet Volume 5.6 FL (6.5-10.1) L Neutrophils (%) (Auto) % (45.0-75.0) Lymphocytes (%) (Auto) % (20.0-45.0) Monocytes (%) (Auto) % (1.0-10.0) Eosinophils (%) (Auto) % (0.0-3.0) Basophils (%) (Auto) % (0.0-2.0) Differential Total Cells Counted 100 Neutrophils % (Manual) 83 % (45-75) H Lymphocytes % (Manual) 10 % (20-45) L Monocytes % (Manual) 3 % (1-10) Eosinophils % (Manual) 4 % (0-3) H Basophils % (Manual) 0 % (0-2) Band Neutrophils 0 % (0-8) Platelet Estimate Increased H Platelet Morphology Normal Hypochromasia 1+ Anisocytosis 2+ Microcytosis 1+ Sodium Level 141 mEQ/L (135-145) Potassium Level 3.4 mEQ/L (3.4-4.9) Chloride Level 99 mEQ/L (98-107) Carbon Dioxide Level 25 mEQ/L (20-30) Anion Gap 17 (5-15) H Blood Urea Nitrogen 9 mg/dL (7-23) Creatinine 0.7 mg/dL (0.7-1.2) Estimat Glomerular Filtration Rate > 60 mL/min (>60) Glucose Level 123 mg/dL (74-106) H Calcium Level 9.1 mg/dL (8.6-10.2) Phosphorus Level 3.6 mg/dL (2.5-4.8) Magnesium Level 1.8 mg/dL (1.7-2.5) Total Bilirubin < 0.2 mg/dL (0.0-1.2) Aspartate Amino Transf (AST/SGOT) 10 U/L (5-40) Alanine Aminotransferase (ALT/SGPT) 8 U/L (3-41) Alkaline Phosphatase 59 U/L (40-129) Total Protein 6.2 g/dL (6.6-8.7) L Albumin 2.8 g/dL (3.5-5.2) L Globulin 3.4 g/dL Albumin/Globulin Ratio 0.8 (1.0-2.7) L Intake and Output 09/03/16 09/04/16 19:00 07:00 Intake Total 1000 ml 1100 ml Output Total 600 ml 500 ml Balance 400 ml 600 ml Intake Oral 100 ml IV Total 1000 ml 1000 ml Output Urine Total 600 ml 500 ml # Voids 2 Objective General: alert, cooperative, no distress, appears stated age Head: normocephalic, without obvious abnormality, atraumatic Eyes: conjunctivae/corneas clear. PERRL, EOM's intact Throat: lips, mucosa, and tongue normal. MMM Neck: supple, symmetrical, trachea midline, and no JVD Lungs: clear to auscultation bilaterally Heart: regular rate and rhythm, S1, S2 normal, no murmur, click, rub or gallop Abdomen: soft, non-tender, non-distended, bowel sounds normal; no masses or organomegaly Extremities: extremities normal, atraumatic, no cyanosis or edema Pulses: 2+ and symmetric Skin: skin color, texture, turgor normal; no rashes or lesions Neurologic: grossly normal, no focal deficits Assessment/Plan Problem List: (1) Cancer of esophagus Assessment & Plan: S/P endoscopy on 09/01/16-await path. See heme/onc consult. See GI note. (2) Gastrointestinal hemorrhage (3) Anemia, blood loss Assessment & Plan: hemoglobin stable. (4) Hematemesis Assessment & Plan: Due to esophageal cancer. (5) History of asthma (6) Homeless Status: WILLIS Guthrie Sep 04, 2016 18:06
[2016-09-04 20:23] VITALS: BP 122/69
--- NOTE | 2016-09-04 20:24 | Cardiology Report ---
APPROVED REPORT EKG Measurement Heart [id number] ND [id number] [id number] Normal sinus rhythm Nonspecific T wave abnormality Abnormal ECG
[2016-09-04] MEDS ORDERED: Iron Sucrose 100 MG in NS 55 ML IVPB SCH (21:00)
--- NOTE | 2016-09-04 22:52 | General Progress Note ---
Assessment/Plan Assessment/Plan ASSESSMENT/RECS: #. Esophageal cancer - imaging is pending --> may need chemotherapy with radiation ---> followup on pathology and ct imaging ---> PPI has been ordered and pending #. Hematemesis. Anemia w/u has been ordered and reviewed ---> Will start IV iron #. Upper gastrointestinal hemorrhage. #. Epigastric pain ---> better with morphine #. History of asthma. Subjective Date patient seen: Sep 03, 2016 Constitutional: Reports: no symptoms HEENT: Reports: no symptoms Cardiovascular: Reports: no symptoms Respiratory: Reports: no symptoms Gastrointestinal/Abdominal: Reports: no symptoms Genitourinary: Reports: no symptoms Neurologic/Psychiatric: Reports: no symptoms Endocrine: Reports: no symptoms Hematologic/Lymphatic: Reports: no symptoms Allergies: Coded Allergies: No Known Allergies (Unverified , 08/23/16) Per pt, he has no known allergies Subjective not in distress, no hematemesis, able to eat Objective Last 24 Hour Vital Signs Date Time Temp Pulse Resp B/P Pulse Ox O2 Delivery O2 Flow Rate FiO2 09/04/16 20:23 97.0 84 18 122/69 97 Room Air 09/04/16 16:00 97.2 79 18 121/67 98 Room Air 09/04/16 12:00 97.2 85 17 119/76 97 Room Air 09/04/16 08:00 97.5 94 19 113/50 99 Room Air 09/04/16 04:10 98.1 89 17 138/70 95 Room Air 09/04/16 00:28 97.9 90 18 140/73 100 Room Air Intake and Output 09/03/16 09/04/16 19:00 07:00 Intake Total 1000 ml 1100 ml Output Total 600 ml 500 ml Balance 400 ml 600 ml Intake Oral 100 ml IV Total 1000 ml 1000 ml Output Urine Total 600 ml 500 ml # Voids 2 Laboratory Tests 09/04/16 05:40: White Blood Count 9.5, Red Blood Count 4.20L, Hemoglobin 9.7L, Hematocrit 31.5L , Mean Corpuscular Volume 75L, Mean Corpuscular Hemoglobin 23.1L, Mean Corpuscular Hemoglobin Concent 30.8L, Red Cell Distribution Width 21.4H, Platelet Count 514H, Mean Platelet Volume 5.6L, Neutrophils (%) (Auto) , Lymphocytes (%) (Auto) , Monocytes (%) (Auto) , Eosinophils (%) (Auto) , Basophils (%) (Auto) , Differential Total Cells Counted 100, Neutrophils % ( Manual) 83H, Lymphocytes % (Manual) 10L, Monocytes % (Manual) 3, Eosinophils % ( Manual) 4H, Basophils % (Manual) 0, Band Neutrophils 0, Platelet Estimate IncreasedH, Platelet Morphology Normal, Hypochromasia 1+, Anisocytosis 2+, Microcytosis 1+, Sodium Level 141, Potassium Level 3.4, Chloride Level 99, Carbon Dioxide Level 25, Anion Gap 17H, Blood Urea Nitrogen 9, Creatinine 0.7, Estimat Glomerular Filtration Rate > 60, Glucose Level 123H, Calcium Level 9.1, Phosphorus Level 3.6, Magnesium Level 1.8, Total Bilirubin < 0.2, Aspartate Amino Transf (AST/SGOT) 10, Alanine Aminotransferase (ALT/SGPT) 8, Alkaline Phosphatase 59, Total Protein 6.2L, Albumin 2.8L, Globulin 3.4, Albumin/ Globulin Ratio 0.8L Height (Feet): 5 Height (Inches): 11.00 Weight (Pounds): 180 General Appearance: no apparent distress EENT: PERRL/EOMI Neck: normal alignment Respiratory/Chest: chest wall non-tender Abdomen: soft Extremities: non-tender 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
[2016-09-05 00:10] VITALS: BP 128/71
[2016-09-05] MEDS: D5NS 1,000 ML IV SCH (02:08)
[2016-09-05 03:09] LABS: CA15-3 27.2 U/mL (0.0-25.0)
[2016-09-05 04:00] VITALS: BP 120/76
[2016-09-05 08:02] LABS: ANION GAP 15 (5-15); CALCIUM 9.1 mg/dL (8.6-10.2); CARBON DIOXIDE 27 mEQ/L (20-30); CHLORIDE 99 mEQ/L (98-107); CREATININE 0.8 mg/dL (0.7-1.2); GLOMERULAR FILTRATION RATE > 60 mL/min (>60); HEMOLYSIS 1; POTASSIUM 3.6 mEQ/L (3.4-4.9); SODIUM 141 mEQ/L (135-145)
[2016-09-05 08:03] LABS: BASOPHILS % (AUTO) 0.6 % (0.0-2.0); EOSINOPHILS % (AUTO) 1.7 % (0.0-3.0); LYMPHOCYTES % (AUTO) 12.8 % (20.0-45.0); MEAN CORPUSCULAR HEMOGLOBIN 22.7 PG (27.0-31.0); MEAN CORPUSCULAR HGB CONC 30.4 G/DL (32.0-36.0); MEAN CORPUSCULAR VOLUME 75 FL (80-99); MEAN PLATELET VOLUME 5.9 FL (6.5-10.1); NEUTROPHILS % (AUTO) 77.9 % (45.0-75.0); PLATELET COUNT 588 K/UL (150-450); RED BLOOD COUNT 4.24 M/UL (4.70-6.10); RED CELL DISTRIBUTION WIDTH 21.9 % (11.6-14.8); WHITE BLOOD COUNT 10.7 K/UL (4.8-10.8)
[2016-09-05 08:31] VITALS: BP 128/70
[2016-09-05 12:00] VITALS: BP 123/74
--- NOTE | 2016-09-05 14:44 | Diagnostic Imaging Report ---
APPROVED REPORT CPT Code: 45372 Present Symptoms Comments: R/O DVT RIGHT LEG: Venous imaging reveals a patent deep venous system. There is no evidence of thrombus within the femoral, popliteal or tibial segments. The greater saphenous vein is also within normal limits. Doppler indicates normal spontaneous flow within these segments. LEFT LEG: Venous imaging reveals acute thrombus in the isolated soleal calf vein. The tip of the thrombus was visualized at mid-calf level. Remainder of the deep venous system is within normal limits. No evidence of thrombus within the femoral, popliteal or tibial segments. Greater saphenous vein also within normal limits. Doppler indicates normal spontaneous flow within these segments. Dr. Ram was notified of abnormal results at 0948
--- NOTE | 2016-09-05 14:46 | Pulmonology Progress Note ---
Assessment/Plan Problems: (1) Esophageal cancer (2) Hematemesis (3) Anemia (4) Homeless (5) Methamphetamine abuse (6) History of asthma Assessment/Plan prbc prn GI notes reviewed endoscopy report reviewed symptomatic treatment stable no sign of bleeding dc planning Subjective ROS Limited/Unobtainable: No Interval Events: late note for 09/04, No new complains Constitutional: Reports: no symptoms HEENT: Repors: no symptoms Respiratory: Reports: no symptoms Allergies: Coded Allergies: No Known Allergies (Unverified , 08/23/16) Per pt, he has no known allergies Objective Last 24 Hour Vital Signs Date Time Temp Pulse Resp B/P Pulse Ox O2 Delivery O2 Flow Rate FiO2 09/05/16 12:00 98.1 89 20 123/74 99 Room Air 09/05/16 08:31 97.0 85 20 128/70 99 Room Air 09/05/16 04:00 97.6 80 19 120/76 98 Room Air 09/05/16 00:10 97.4 77 18 128/71 97 Room Air 09/04/16 20:23 97.0 84 18 122/69 97 Room Air 09/04/16 16:00 97.2 79 18 121/67 98 Room Air Intake and Output 09/04/16 09/05/16 19:00 07:00 Intake Total 700 ml 200 ml Output Total 500 ml 150 ml Balance 200 ml 50 ml Intake Oral 400 ml 200 ml IV Total 300 ml Output Urine Total 500 ml 150 ml Estimated Blood Loss 0 ml # Voids 2 # Bowel Movements 2 General Appearance: cachetic HEENT: normocephalic, atraumatic Respiratory/Chest: chest wall non-tender, lungs clear, normal breath sounds Cardiovascular: normal peripheral pulses, normal rate Abdomen: normal bowel sounds, soft, non tender Genitourinary: normal external genitalia Extremities: no clubbing Skin: no ulcers Neurologic/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: juice 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-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 grossly normal Lymphatic: no neck adenopathy Laboratory Tests 09/05/16 07:05: White Blood Count 10.7, Red Blood Count 4.24L, Hemoglobin 9.6L, Hematocrit 31.7L , Mean Corpuscular Volume 75L, Mean Corpuscular Hemoglobin 22.7L, Mean Corpuscular Hemoglobin Concent 30.4L, Red Cell Distribution Width 21.9H, Platelet Count 588H, Mean Platelet Volume 5.9L, Neutrophils (%) (Auto) 77.9H, Lymphocytes (%) (Auto) 12.8L, Monocytes (%) (Auto) 7.0, Eosinophils (%) (Auto) 1.7, Basophils (%) (Auto) 0.6, Sodium Level 141, Potassium Level 3.6, Chloride Level 99, Carbon Dioxide Level 27, Anion Gap 15, Blood Urea Nitrogen 17, Creatinine 0.8, Estimat Glomerular Filtration Rate > 60, Glucose Level 104, Calcium Level 9.1 Current Medications Medications (Trade) Dose Ordered Sig/Fabian Route PRN Reason Start Time Stop Time Status Last Admin Dose Admin Acetaminophen (Tylenol) 650 mg Q4H PRN ORAL fever 08/31/16 22:15 09/30/16 22:14 Al Hydroxide/Mg Hydroxide (Mylanta II) 30 ml Q6H PRN ORAL dyspepsia 08/31/16 22:15 09/30/16 22:14 09/03/16 06:08 Dextrose STAT PRN IV Hypoglycemia 08/31/16 22:15 09/30/16 22:14 Dextrose/Sodium Chloride (D5ns) 1,000 ml @ 100 mls/hr Q10H IV 08/31/16 22:08 09/30/16 22:07 09/04/16 06:03 Diphenhydramine HCl (Benadryl) 25 mg Q6H PRN ORAL Itching/Pruritis 08/31/16 22:15 09/30/16 22:14 Iron Sucrose/ Sodium Chloride (Venofer/Sodium Chloride) 60 ml @ 240 mls/hr BEDTIME IVPB 09/04/16 21:00 09/08/16 21:14 Morphine Sulfate (Morphine Sulfate) 1 mg Q4H PRN IVP Moderate Pain (Pain Scale 4-6) 08/31/16 23:45 09/07/16 23:44 09/01/16 00:07 Morphine Sulfate (Morphine Sulfate) 2 mg Q4H PRN IVP severe Pain (Pain Scale 7-10) 08/31/16 22:15 09/07/16 22:14 09/03/16 06:09 Nitroglycerin (Ntg) 0.4 mg Q5M X 3 DOSES PRN SL Prn Chest Pain 08/31/16 22:15 09/30/16 22:14 Ondansetron HCl (Zofran) 4 mg Q6H PRN IVP Nausea & Vomiting 08/31/16 22:15 09/30/16 22:14 09/03/16 09:47 Pantoprazole 40 mg 40 mg EVERY 12 HOURS ORAL 09/01/16 17:00 10/01/16 16:59 09/05/16 08:56 Polyethylene Glycol (Miralax) 17 gm HSPRN PRN ORAL Constipation 08/31/16 22:15 09/30/16 22:14 Temazepam (Restoril) 15 mg HSPRN PRN ORAL Insomnia 08/31/16 22:15 09/07/16 22:14 09/02/16 21:11 QUINTON FREEDMAN Sep 05, 2016 14:46
--- NOTE | 2016-09-05 14:47 | Pulmonology Progress Note ---
Assessment/Plan Problems: (1) Esophageal cancer (2) Hematemesis (3) Anemia (4) Homeless (5) Methamphetamine abuse (6) History of asthma Assessment/Plan all notes reviewed h/h stable GI notes reviewed endoscopy report reviewed symptomatic treatment stable no sign of bleeding dc planning Subjective ROS Limited/Unobtainable: No Interval Events: asymptomatic Constitutional: Reports: no symptoms HEENT: Repors: no symptoms Allergies: Coded Allergies: No Known Allergies (Unverified , 08/23/16) Per pt, he has no known allergies Objective Last 24 Hour Vital Signs Date Time Temp Pulse Resp B/P Pulse Ox O2 Delivery O2 Flow Rate FiO2 09/05/16 12:00 98.1 89 20 123/74 99 Room Air 09/05/16 08:31 97.0 85 20 128/70 99 Room Air 09/05/16 04:00 97.6 80 19 120/76 98 Room Air 09/05/16 00:10 97.4 77 18 128/71 97 Room Air 09/04/16 20:23 97.0 84 18 122/69 97 Room Air 09/04/16 16:00 97.2 79 18 121/67 98 Room Air Intake and Output 09/04/16 09/05/16 19:00 07:00 Intake Total 700 ml 200 ml Output Total 500 ml 150 ml Balance 200 ml 50 ml Intake Oral 400 ml 200 ml IV Total 300 ml Output Urine Total 500 ml 150 ml Estimated Blood Loss 0 ml # Voids 2 # Bowel Movements 2 General Appearance: WD/WN HEENT: normocephalic Respiratory/Chest: chest wall non-tender, lungs clear Cardiovascular: normal peripheral pulses, normal rate Abdomen: normal bowel sounds, soft, non tender Extremities: no cyanosis Neurologic/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 II-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 grossly normal Laboratory Tests 09/05/16 07:05: White Blood Count 10.7, Red Blood Count 4.24L, Hemoglobin 9.6L, Hematocrit 31.7L , Mean Corpuscular Volume 75L, Mean Corpuscular Hemoglobin 22.7L, Mean Corpuscular Hemoglobin Concent 30.4L, Red Cell Distribution Width 21.9H, Platelet Count 588H, Mean Platelet Volume 5.9L, Neutrophils (%) (Auto) 77.9H, Lymphocytes (%) (Auto) 12.8L, Monocytes (%) (Auto) 7.0, Eosinophils (%) (Auto) 1.7, Basophils (%) (Auto) 0.6, Sodium Level 141, Potassium Level 3.6, Chloride Level 99, Carbon Dioxide Level 27, Anion Gap 15, Blood Urea Nitrogen 17, Creatinine 0.8, Estimat Glomerular Filtration Rate > 60, Glucose Level 104, Calcium Level 9.1 Current Medications Medications (Trade) Dose Ordered Sig/Fabian Route PRN Reason Start Time Stop Time Status Last Admin Dose Admin Acetaminophen (Tylenol) 650 mg Q4H PRN ORAL fever 08/31/16 22:15 09/30/16 22:14 Al Hydroxide/Mg Hydroxide (Mylanta II) 30 ml Q6H PRN ORAL dyspepsia 08/31/16 22:15 09/30/16 22:14 09/03/16 06:08 Dextrose STAT PRN IV Hypoglycemia 08/31/16 22:15 09/30/16 22:14 Dextrose/Sodium Chloride (D5ns) 1,000 ml @ 100 mls/hr Q10H IV 08/31/16 22:08 09/30/16 22:07 09/04/16 06:03 Diphenhydramine HCl (Benadryl) 25 mg Q6H PRN ORAL Itching/Pruritis 08/31/16 22:15 09/30/16 22:14 Iron Sucrose/ Sodium Chloride (Venofer/Sodium Chloride) 60 ml @ 240 mls/hr BEDTIME IVPB 09/04/16 21:00 09/08/16 21:14 Morphine Sulfate (Morphine Sulfate) 1 mg Q4H PRN IVP Moderate Pain (Pain Scale 4-6) 08/31/16 23:45 09/07/16 23:44 09/01/16 00:07 Morphine Sulfate (Morphine Sulfate) 2 mg Q4H PRN IVP severe Pain (Pain Scale 7-10) 08/31/16 22:15 09/07/16 22:14 09/03/16 06:09 Nitroglycerin (Ntg) 0.4 mg Q5M X 3 DOSES PRN SL Prn Chest Pain 08/31/16 22:15 09/30/16 22:14 Ondansetron HCl (Zofran) 4 mg Q6H PRN IVP Nausea & Vomiting 08/31/16 22:15 09/30/16 22:14 09/03/16 09:47 Pantoprazole 40 mg 40 mg EVERY 12 HOURS ORAL 09/01/16 17:00 10/01/16 16:59 09/05/16 08:56 Polyethylene Glycol (Miralax) 17 gm HSPRN PRN ORAL Constipation 08/31/16 22:15 09/30/16 22:14 Temazepam (Restoril) 15 mg HSPRN PRN ORAL Insomnia 08/31/16 22:15 09/07/16 22:14 09/02/16 21:11 QUINTON FREEDMAN Sep 05, 2016 14:47
--- NOTE | 2016-09-05 14:52 | General Progress Note ---
Assessment/Plan Assessment/Plan ASSESSMENT/RECS: #. Esophageal cancer - shows likely locally advanced disease with LN involvement , currently has poor understanding of disease status, and does not have a formal plan to followup because of transitional living ---> may need chemotherapy with radiation if able to tolerate ---> will need outpatient treatment, v palliative care if decides against treatment #. Hematemesis. Anemia w/u has been ordered and reviewed ---> Will start IV iron #. Upper gastrointestinal hemorrhage. #. Epigastric pain ---> better with morphine #. History of asthma. Subjective Constitutional: Reports: no symptoms HEENT: Reports: no symptoms Cardiovascular: Reports: no symptoms Respiratory: Reports: no symptoms Gastrointestinal/Abdominal: Reports: no symptoms Genitourinary: Reports: no symptoms Neurologic/Psychiatric: Reports: no symptoms Endocrine: Reports: no symptoms Hematologic/Lymphatic: Reports: anemia Allergies: Coded Allergies: No Known Allergies (Unverified , 08/23/16) Per pt, he has no known allergies Subjective not in distress, no hematemesis noted, able to eat Objective Last 24 Hour Vital Signs Date Time Temp Pulse Resp B/P Pulse Ox O2 Delivery O2 Flow Rate FiO2 09/05/16 12:00 98.1 89 20 123/74 99 Room Air 09/05/16 08:31 97.0 85 20 128/70 99 Room Air 09/05/16 04:00 97.6 80 19 120/76 98 Room Air 09/05/16 00:10 97.4 77 18 128/71 97 Room Air 09/04/16 20:23 97.0 84 18 122/69 97 Room Air 09/04/16 16:00 97.2 79 18 121/67 98 Room Air Intake and Output 09/04/16 09/05/16 19:00 07:00 Intake Total 700 ml 200 ml Output Total 500 ml 150 ml Balance 200 ml 50 ml Intake Oral 400 ml 200 ml IV Total 300 ml Output Urine Total 500 ml 150 ml Estimated Blood Loss 0 ml # Voids 2 # Bowel Movements 2 Laboratory Tests 09/05/16 07:05: White Blood Count 10.7, Red Blood Count 4.24L, Hemoglobin 9.6L, Hematocrit 31.7L , Mean Corpuscular Volume 75L, Mean Corpuscular Hemoglobin 22.7L, Mean Corpuscular Hemoglobin Concent 30.4L, Red Cell Distribution Width 21.9H, Platelet Count 588H, Mean Platelet Volume 5.9L, Neutrophils (%) (Auto) 77.9H, Lymphocytes (%) (Auto) 12.8L, Monocytes (%) (Auto) 7.0, Eosinophils (%) (Auto) 1.7, Basophils (%) (Auto) 0.6, Sodium Level 141, Potassium Level 3.6, Chloride Level 99, Carbon Dioxide Level 27, Anion Gap 15, Blood Urea Nitrogen 17, Creatinine 0.8, Estimat Glomerular Filtration Rate > 60, Glucose Level 104, Calcium Level 9.1 Height (Feet): 5 Height (Inches): 11.00 Weight (Pounds): 180 General Appearance: no apparent distress EENT: TMs normal Neck: supple Cardiovascular: regular rhythm Respiratory/Chest: lungs clear Abdomen: non tender Edema: 1+ Leg (L), 1+ Leg (R) Edema: mild edema Neurologic: oriented x 3 Skin: warm/dry Juanito Lund Sep 05, 2016 14:52
[2016-09-05] MEDS ORDERED: D5NS 1000ml IV ONE (15:50)
[2016-09-05 16:00] VITALS: BP 126/64
--- NOTE | 2016-09-05 16:05 | GI Progress Note ---
Assessment/Plan Problems: (1) Esophageal cancer ICD Codes: C15.9 - Malignant neoplasm of esophagus, unspecified SNOMED: 756089916, 974355572 (2) Cancer of esophagus ICD Codes: C15.9 - Malignant neoplasm of esophagus, unspecified SNOMED: 057172040, 543532198 (3) Anemia ICD Codes: D64.9 - Anemia, unspecified SNOMED: 023849529 (4) Methamphetamine abuse ICD Codes: F15.10 - Other stimulant abuse, uncomplicated SNOMED: 847857010 (5) Noncompliance by refusing intervention or support ICD Codes: Z53.29 - Procedure and treatment not carried out because of patient' s decision for other reasons SNOMED: 181157785 (6) Anemia, blood loss ICD Codes: D50.0 - Iron deficiency anemia secondary to blood loss (chronic) SNOMED: 567387893 (7) Hypoalbuminemia ICD Codes: E88.09 - Other disorders of plasma-protein metabolism, not elsewhere classified SNOMED: 010833623 (8) Leukocytosis ICD Codes: D72.829 - Elevated white blood cell count, unspecified SNOMED: 915295373, 328458686 (9) Gastrointestinal hemorrhage ICD Codes: K92.2 - Gastrointestinal hemorrhage, unspecified SNOMED: 26246468 (10) Hematemesis ICD Codes: K92.0 - Hematemesis SNOMED: 2482494 Status: stable, progressing Status Narrative Discussed with Dr. Bassett. Assessment/Plan CT reviewed >> 6 x 9 cm mass involving the distal esophagus and probably an intrathoracic component of the gastric cardia. There is adjacent lymphadenopathy , with 2 large nodes, measuring 3.3 cm diameter, highly suspicious for metastatic lymphadenopathy. okay for DC per GI standpoint >> follow up oncology recs most likely would need chemo/radiation and/or esophageal stent regular diet ppi fu labs Subjective Gastrointestinal/Abdominal: Reports: no symptoms Subjective able to tolerate diet Objective Last 24 Hour Vital Signs Date Time Temp Pulse Resp B/P Pulse Ox O2 Delivery O2 Flow Rate FiO2 09/05/16 12:00 98.1 89 20 123/74 99 Room Air 09/05/16 08:31 97.0 85 20 128/70 99 Room Air 09/05/16 04:00 97.6 80 19 120/76 98 Room Air 09/05/16 00:10 97.4 77 18 128/71 97 Room Air 09/04/16 20:23 97.0 84 18 122/69 97 Room Air Intake and Output 09/04/16 09/05/16 19:00 07:00 Intake Total 700 ml 200 ml Output Total 500 ml 150 ml Balance 200 ml 50 ml Intake Oral 400 ml 200 ml IV Total 300 ml Output Urine Total 500 ml 150 ml Estimated Blood Loss 0 ml # Voids 2 # Bowel Movements 2 Laboratory Tests Test 09/05/16 07:05 White Blood Count 10.7 K/UL (4.8-10.8) Red Blood Count 4.24 M/UL (4.70-6.10) L Hemoglobin 9.6 G/DL (14.2-18.0) L Hematocrit 31.7 % (42.0-52.0) L Mean Corpuscular Volume 75 FL (80-99) L Mean Corpuscular Hemoglobin 22.7 PG (27.0-31.0) L Mean Corpuscular Hemoglobin Concent 30.4 G/DL (32.0-36.0) L Red Cell Distribution Width 21.9 % (11.6-14.8) H Platelet Count 588 K/UL (150-450) H Mean Platelet Volume 5.9 FL (6.5-10.1) L Neutrophils (%) (Auto) 77.9 % (45.0-75.0) H Lymphocytes (%) (Auto) 12.8 % (20.0-45.0) L Monocytes (%) (Auto) 7.0 % (1.0-10.0) Eosinophils (%) (Auto) 1.7 % (0.0-3.0) Basophils (%) (Auto) 0.6 % (0.0-2.0) Sodium Level 141 mEQ/L (135-145) Potassium Level 3.6 mEQ/L (3.4-4.9) Chloride Level 99 mEQ/L (98-107) Carbon Dioxide Level 27 mEQ/L (20-30) Anion Gap 15 (5-15) Blood Urea Nitrogen 17 mg/dL (7-23) Creatinine 0.8 mg/dL (0.7-1.2) Estimat Glomerular Filtration Rate > 60 mL/min (>60) Glucose Level 104 mg/dL (74-106) Calcium Level 9.1 mg/dL (8.6-10.2) Height (Feet): 5 Height (Inches): 11.00 Weight (Pounds): 180 General Appearance: no apparent distress, alert Cardiovascular: normal rate Respiratory/Chest: normal breath sounds, no respiratory distress Abdominal Exam: normal bowel sounds, non tender, soft Extremities: normal range of motion Alejandra Iraheta N.P. Sep 05, 2016 16:05
--- NOTE | 2016-09-05 17:14 | Internal Med Progress Note ---
Subjective Date of Service: Sep 05, 2016 Physician Name Mohamud Diane Attending Physician Bishnu Gregory MD Current Medications Medications (Trade) Dose Ordered Sig/Fabian Route PRN Reason Start Time Stop Time Status Last Admin Dose Admin Acetaminophen (Tylenol) 650 mg Q4H PRN ORAL fever 08/31/16 22:15 09/30/16 22:14 Al Hydroxide/Mg Hydroxide (Mylanta II) 30 ml Q6H PRN ORAL dyspepsia 08/31/16 22:15 09/30/16 22:14 09/03/16 06:08 Dextrose STAT PRN IV Hypoglycemia 08/31/16 22:15 09/30/16 22:14 Dextrose/Sodium Chloride (D5ns) 1,000 ml @ 100 mls/hr Q10H IV 08/31/16 22:08 09/30/16 22:07 09/04/16 06:03 Diphenhydramine HCl (Benadryl) 25 mg Q6H PRN ORAL Itching/Pruritis 08/31/16 22:15 09/30/16 22:14 Iron Sucrose/ Sodium Chloride (Venofer/Sodium Chloride) 60 ml @ 240 mls/hr BEDTIME IVPB 09/04/16 21:00 09/08/16 21:14 Morphine Sulfate (Morphine Sulfate) 1 mg Q4H PRN IVP Moderate Pain (Pain Scale 4-6) 08/31/16 23:45 09/07/16 23:44 09/01/16 00:07 Morphine Sulfate (Morphine Sulfate) 2 mg Q4H PRN IVP severe Pain (Pain Scale 7-10) 08/31/16 22:15 09/07/16 22:14 09/03/16 06:09 Nitroglycerin (Ntg) 0.4 mg Q5M X 3 DOSES PRN SL Prn Chest Pain 08/31/16 22:15 09/30/16 22:14 Ondansetron HCl (Zofran) 4 mg Q6H PRN IVP Nausea & Vomiting 08/31/16 22:15 09/30/16 22:14 09/03/16 09:47 Pantoprazole 40 mg 40 mg EVERY 12 HOURS ORAL 09/01/16 17:00 10/01/16 16:59 09/05/16 08:56 Polyethylene Glycol (Miralax) 17 gm HSPRN PRN ORAL Constipation 08/31/16 22:15 09/30/16 22:14 Temazepam (Restoril) 15 mg HSPRN PRN ORAL Insomnia 08/31/16 22:15 09/07/16 22:14 09/02/16 21:11 Allergies: Coded Allergies: No Known Allergies (Unverified , 08/23/16) Per pt, he has no known allergies ROS Limited/Unobtainable: No Constitutional: Reports: no symptoms HEENT: Reports: no symptoms Cardiovascular: Reports: no symptoms Respiratory: Reports: no symptoms Gastrointestinal/Abdominal: Reports: no symptoms Genitourinary: Reports: no symptoms Neurologic/Psychiatric: Reports: no symptoms Subjective 66 YO M admitted with hemetemesis and GI hemorrhage. Now probable esophageal cancer. S/P endoscopy and colonoscopy on 09/01/16. Cover for Int Med-Dr Gregory. Await transfer to [facility] esophageal cancer team. Objective Last Vital Signs Date Time Temp Pulse Resp B/P Pulse Ox O2 Delivery O2 Flow Rate FiO2 09/05/16 12:00 98.1 89 20 123/74 99 Room Air 09/01/16 12:35 3.0 Laboratory Tests Test 09/05/16 07:05 White Blood Count 10.7 K/UL (4.8-10.8) Red Blood Count 4.24 M/UL (4.70-6.10) L Hemoglobin 9.6 G/DL (14.2-18.0) L Hematocrit 31.7 % (42.0-52.0) L Mean Corpuscular Volume 75 FL (80-99) L Mean Corpuscular Hemoglobin 22.7 PG (27.0-31.0) L Mean Corpuscular Hemoglobin Concent 30.4 G/DL (32.0-36.0) L Red Cell Distribution Width 21.9 % (11.6-14.8) H Platelet Count 588 K/UL (150-450) H Mean Platelet Volume 5.9 FL (6.5-10.1) L Neutrophils (%) (Auto) 77.9 % (45.0-75.0) H Lymphocytes (%) (Auto) 12.8 % (20.0-45.0) L Monocytes (%) (Auto) 7.0 % (1.0-10.0) Eosinophils (%) (Auto) 1.7 % (0.0-3.0) Basophils (%) (Auto) 0.6 % (0.0-2.0) Sodium Level 141 mEQ/L (135-145) Potassium Level 3.6 mEQ/L (3.4-4.9) Chloride Level 99 mEQ/L (98-107) Carbon Dioxide Level 27 mEQ/L (20-30) Anion Gap 15 (5-15) Blood Urea Nitrogen 17 mg/dL (7-23) Creatinine 0.8 mg/dL (0.7-1.2) Estimat Glomerular Filtration Rate > 60 mL/min (>60) Glucose Level 104 mg/dL (74-106) Calcium Level 9.1 mg/dL (8.6-10.2) Intake and Output 09/04/16 09/05/16 19:00 07:00 Intake Total 700 ml 200 ml Output Total 500 ml 150 ml Balance 200 ml 50 ml Intake Oral 400 ml 200 ml IV Total 300 ml Output Urine Total 500 ml 150 ml Estimated Blood Loss 0 ml # Voids 2 # Bowel Movements 2 Objective General: alert, cooperative, no distress, appears stated age Head: normocephalic, without obvious abnormality, atraumatic Eyes: conjunctivae/corneas clear. PERRL, EOM's intact Throat: lips, mucosa, and tongue normal. MMM Neck: supple, symmetrical, trachea midline, and no JVD Lungs: clear to auscultation bilaterally Heart: regular rate and rhythm, S1, S2 normal, no murmur, click, rub or gallop Abdomen: soft, non-tender, non-distended, bowel sounds normal; no masses or organomegaly Extremities: extremities normal, atraumatic, no cyanosis or edema Pulses: 2+ and symmetric Skin: skin color, texture, turgor normal; no rashes or lesions Neurologic: grossly normal, no focal deficits Assessment/Plan Problem List: (1) Cancer of esophagus Assessment & Plan: S/P endoscopy on 09/01/16-await path. See heme/onc consult. See GI note. (2) Gastrointestinal hemorrhage (3) Anemia, blood loss Assessment & Plan: hemoglobin stable. (4) Hematemesis Assessment & Plan: Due to esophageal cancer. (5) History of asthma (6) Homeless Status: not improved Assessment/Plan Transfer to [facility] esophageal cancer team when bed available. MOHAMUD DIANE Sep 05, 2016 17:14
--- NOTE | 2016-09-07 11:26 | Discharge Summary ---
Discharge Summary Hospital Course Date of Admission Aug 31, 2016 at 22:26 Date of Discharge Sep 05, 2016 at 16:30 Admitting Diagnosis GI bleed HPI Carlos Vieira is a 66 year old male who was admitted on Aug 31, 2016 at 22:26 for Gastrointestinal Bleed Hospital Course [id number] Discharge Discharge Disposition Patient was discharged back to previous living situation Discharge Diagnoses: Maria Medina NP Sep 07, 2016 11:26
--- NOTE | 2016-09-07 22:46 | Discharge Summary 2 SIG ---
DATE OF ADMISSION: 08/31/2016 DATE OF DISCHARGE: 09/05/2016 CONSULTANTS: 1. Sandor Higgins M.D. 2. Josh Bassett M.D. 3. Juanito Lund M.D. BRIEF HOSPITAL COURSE: The patient is a 66-year-old male, who presented to ED complaining of epigastric pain. He was admitted to [facility] from 08/23/2016 to 08/25/2016 and was admitted for gastrointestinal bleed. He received two units of packed RBC at that time, however, he refused endoscopy and refused colonoscopy and the patient left against medical advice. He again presented to ER on 08/31/2016 complaining of vomiting for two days. He was admitted to the medical floor for gastrointestinal bleed. He underwent esophagogastroduodenoscopy on 09/01/[address] Bassett. Findings showed possible esophageal cancer and possible gastric cancer extending to the esophagus. Chest, abdomen, and pelvis CT scan showed 6 x 9 cm mass in the distal esophagus with adjacent lymphadenopathy highly suspicious for metastatic lymphadenopathy. There was a right renal mass, thyroid nodules, and multiple renal cysts seen. Dr. uLnd was consulted. The patient would eventually need chemotherapy with radiation. The patient was given symptomatic treatment with proton pump inhibitors and was given IV iron. The patient would need follow ups, outpatient treatment, and eventually was offered palliative care. The patient was eventually discharged home. FINAL DIAGNOSES: 1. Acute upper gastrointestinal bleed status post endoscopy. 2. Esophageal cancer. 3. Anemia. 4. Homelessness. 5. Hypoalbuminemia. 6. Hematemesis. Sandor Higgins M.D. I have been assigned to dictate discharge summary on this account and I was not involved in the patient's management. Maria Medina N.P. DR: JUAN C JOB#: [id number] CC:
== END 2016-09-05 16:30 | disposition home or self-care (01) | DRG 375 ==
LOC: EMR 21:30 → 3E 22:26 → EDBEDREQ 22:41 → 3E 09-01 02:31
PROC: 0DB58ZX Excision of Esophagus, Via Natural or Artificial Opening Endoscopic, Diagnostic (ICD-10-PCS; principal; 2016-08-31)
DX: C15.9 Malignant neoplasm of esophagus, unspecified (principal); K92.0 Hematemesis; C77.9 Secondary and unspecified malignant neoplasm of lymph node, unspecified; E88.09 Other disorders of plasma-protein metabolism, not elsewhere classified; F15.10 Other stimulant abuse, uncomplicated; D50.0 Iron deficiency anemia secondary to blood loss (chronic); J45.909 Unspecified asthma, uncomplicated; Z59.0 Homelessness; Z91.19 Patient's noncompliance with other medical treatment and regimen
CPT/HCPCS: 36415; 71260; 74177; 80048; 80053; 80300; 81003; 82105; 82150; 82270; 82378; 82550; 82553; 82607; 82728; 82746; 83540; 83550; 83615; 83690; 83735; 84100; 84153; 84484; 85007; 85025; 85044; 85060; 85610; 85730; 86300; 86850; 86900; 86901; 87081; 93005; 93970; 94003; 94150; J2405

== ENCOUNTER 2017-01-08 16:33 | Emergency (ER) | payer MEDICARE, MEDICAID ==
[~2017-01-08] VITALS: Ht 180.3 cm; Wt 68.0 kg
[2017-01-08 16:33] VITALS: BP 122/55
[~2017-01-08 16:33] MED LIST: NKM
[2017-01-08] MEDS ORDERED: ACETAMINOPHEN325 M1 ORAL (16:40)
[2017-01-08] MEDS ORDERED: MIRTAZAPINE15 M3 ORAL (16:40)
[2017-01-08] MEDS ORDERED: PROTONIX40 MG ORAL (16:40)
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
[2017-01-08 20:47] VITALS: BP 98/65
--- NOTE | 2017-01-09 09:23 | Diagnostic Imaging Report ---
Indication: Headache Technique: Contiguous 5 mm thick transaxial imaging of the head obtained in a Siemens Sensation [address] scanner. Soft tissue and bone windows generated. Total Dose length Product (DLP): [address] Dose Index Volume (CTDIvol): 70.38, 0.15 mGy Comparison: none Findings: There is moderate prominence of the ventricles, basal cisterns, and cerebral sulci consistent with atrophy. Moderate, nonspecific, white matter hypoattenuation is noted throughout the brain consistent with chronic small vessel disease. A right posterior fossa craniectomy is noted. There is minimal encephalomalacia within the adjacent cerebellum. There is no midline shift, edema, acute hemorrhage, mass effect, or abnormal extra-axial fluid collections. Bones and extra osseous soft tissues are unremarkable. Impression: No acute intracranial bleed, mass effect or edema. Status post right posterior fossa surgery Moderate atrophy of the brain. Evidence of chronic small vessel disease involving white matter tracts. The CT scanner at [facility] is accredited by the [employer] and the scans are performed using dose optimization techniques as appropriate to a performed exam including Automatic Exposure control.
== END 2017-01-08 20:58 ==
LOC: EDBD 16:33 → EMR 17:40
DX: S00.83XA Contusion of other part of head, initial encounter (principal); S00.212A Abrasion of left eyelid and periocular area, initial encounter; Y04.0XXA Assault by unarmed brawl or fight, initial encounter; Y92.129 Unspecified place in nursing home as the place of occurrence of the external cause; Z85.841 Personal history of malignant neoplasm of brain; Z85.01 Personal history of malignant neoplasm of esophagus; R51 Headache; G31.9 Degenerative disease of nervous system, unspecified
CPT/HCPCS: 70450; 80307; 96360; 99284

== ENCOUNTER 2017-01-10 03:46 | Emergency (ER) | payer MEDICARE, MEDICAID ==
[~2017-01-10] VITALS: Ht 180.3 cm; Wt 68.0 kg
[~2017-01-10 03:46] MED LIST changes: +ACETAMINOPHEN325 M1 ORAL; +MIRTAZAPINE15 M3 ORAL; +PROTONIX40 MG ORAL
[2017-01-10 04:02] VITALS: BP 108/71
[2017-01-10] MEDS ORDERED: IBUPROFEN600 MG ORAL (04:02)
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
[2017-01-10 04:05] VITALS: BP 108/71
== END 2017-01-10 04:05 | disposition home or self-care (01) ==
LOC: EMR 04:02
DX: R10.9 Unspecified abdominal pain (principal); R51 Headache; F15.10 Other stimulant abuse, uncomplicated; Z85.841 Personal history of malignant neoplasm of brain; Z85.01 Personal history of malignant neoplasm of esophagus
CPT/HCPCS: 99283